=== PATIENT | female | born 1960 | race Asian ===

== ENCOUNTER 2017-11-26 07:37 | Day surgery (SDC) | payer OTHER ==
[~2017-11-26] VITALS: Ht 157.5 cm; Wt 59.4 kg
[~2017-11-26 07:37] MED LIST: BASAGLAR K100 UNIT/1; BLOOD PRESSURE PILL; CEPH500 PO; CLIMARA1 EACH; Diabeta2.5 MG PO; INSLIS75I SC; INSU7030P SUBQ; INSULANPEN SC; IRBE75; MECL25 PO; OXYACE5T PO; PROM25 PO; RXOXYACE PO; TAMS.4ER PO; Zofran Odt4 MG PO
== END 2017-11-26 09:39 | disposition home or self-care (01) ==
LOC: ORSCSDS 07:37
PROVIDERS: Surgery
PROC: 0DJD8ZZ Inspection of Lower Intestinal Tract, Via Natural or Artificial Opening Endoscopic (ICD-10-PCS; principal; 2017-11-26 08:45)
DX: Z12.11 Encounter for screening for malignant neoplasm of colon (principal); Z85.038 Personal history of other malignant neoplasm of large intestine; E11.9 Type 2 diabetes mellitus without complications; I10 Essential (primary) hypertension; Z79.4 Long term (current) use of insulin; Z79.899 Other long term (current) drug therapy
CPT/HCPCS: 82947; J2405; J7120

== ENCOUNTER 2018-03-16 07:31 | Emergency (ER) | payer OTHER | END 2018-03-16 07:51 | disposition left against medical advice (07) | LOC: ER 07:31 | DX: Z53.21 Procedure and treatment not carried out due to patient leaving prior to being seen by health care provider (principal) ==

== ENCOUNTER 2018-05-05 04:16 | Emergency (ER) | payer OTHER ==
[~2018-05-05] VITALS: Ht 160 cm; Wt 58.5 kg
[2018-05-05 05:35] LABS: BASOPHILS ABSOLUTE AUTO 0.02 K/mm3 (0.00-0.23); BASOPHILS PERCENT AUTO 0 % (0-2); EOSINOPHILS ABSOLUTE AUTO 0.01 K/mm3 (0.00-0.68); EOSINOPHILS PERCENT AUTO 0 % (0-6); Hematocrit 46.3 % (33.0-51.0); Hemoglobin 15.8 g/dL (11.5-16.0); IMMATURE GRAN ABSOLUTE AUTO 0.02 K/mm3 (0.00-0.10); IMMATURE GRAN PERCENT AUTO 0 % (0-1); LYMPHOCYTES ABSOLUTE AUTO 0.86 K/mm3 (0.84-5.20); LYMPHOCYTES PERCENT AUTO 8 % (21-46); MONOCYTES ABSOLUTE AUTO 0.34 K/mm3 (0.16-1.47); MONOCYTES PERCENT AUTO 3 % (4-13); Mean Corpuscular HGB 28.2 pg (26.0-34.0); Mean Corpuscular HGB Conc 34.1 g/dL (31.5-36.5); Mean Corpuscular Volume 83 fL (80-100); Mean Platelet Volume 10.3 fL (9.1-12.4); NEUTROPHILS ABSOLUTE AUTO 10.08 K/mm3 (1.96-9.15); NEUTROPHILS PERCENT AUTO 89 % (41-73); Platelet Count 215 K/mm3 (150-400); RDW Coefficient Variation 11.9 % (11.7-14.2); RDW Standard Deviation 36.3 fL (35.1-46.3); White Blood Cell Count 11.33 K/mm3 (4.00-11.30)
[2018-05-05 05:50] LABS: Alanine Aminotransfer (ALT/SGP 26 U/L (12-78); Alk Phos 75 U/L (50-136); Anion Gap 10 mmol/L (6-16); Aspartate Aminotrans (AST/SGOT 21 U/L (12-37); Bilirubin, Total 1.2 mg/dL (0.1-1.0); Blood Urea Nitrogen 25 mg/dL (8-24); Bun/Creatinine Ratio 33.3 (12.0-20.0); CO2, Blood 26 mmol/L (21-32); Calcium, Blood 9.5 mg/dL (8.5-10.1); Chloride, Blood 103 mmol/L (98-108); Creatinine, Blood 0.75 mg/dL (0.40-1.00); Globulin, Blood 4.2 g/dL (2.2-4.0); Glomerular Filtration Rate >60 (60-); Glucose, Blood 368 mg/dL (70-99); Potassium, Blood 5.3 mmol/L (3.5-5.5); Sodium, Blood 139 mmol/L (136-145); Total Protein, Blood 8.2 g/dL (6.4-8.2)
[2018-05-05 06:41] LABS: Troponin I <0.015 ng/mL (0.000-0.040)
== END 2018-05-05 08:20 | disposition home or self-care (01) ==
LOC: ER 04:16
PROVIDERS: Emergency Medicine
DX: R10.10 Upper abdominal pain, unspecified (principal); R11.2 Nausea with vomiting, unspecified; E11.9 Type 2 diabetes mellitus without complications; I10 Essential (primary) hypertension; Z88.2 Allergy status to sulfonamides; Z88.1 Allergy status to other antibiotic agents; Z91.09 Other allergy status, other than to drugs and biological substances; Z79.4 Long term (current) use of insulin
CPT/HCPCS: 36415; 80053; 82947; 83690; 84484; 85025; 93005; 93010; 96361; 96374; 96375; 99283; J1815; J2405; J3010; J7120

== ENCOUNTER 2019-03-26 07:24 | Emergency (ER) | payer OTHER ==
[~2019-03-26] VITALS: Ht 160 cm; Wt 54.4 kg
[~2019-03-26 07:24] MED LIST changes: +Zofran8 MG PO
[2019-03-26] MEDS ORDERED: LOSA50 (07:52)
[2019-03-26 08:17] LABS: BASOPHILS ABSOLUTE AUTO 0.02 K/mm3 (0.00-0.23); BASOPHILS PERCENT AUTO 0 % (0-2); EOSINOPHILS ABSOLUTE AUTO 0.05 K/mm3 (0.00-0.68); EOSINOPHILS PERCENT AUTO 1 % (0-6); Hematocrit 45.8 % (33.0-51.0); Hemoglobin 15.7 g/dL (11.5-16.0); IMMATURE GRAN ABSOLUTE AUTO 0.02 K/mm3 (0.00-0.10); IMMATURE GRAN PERCENT AUTO 0 % (0-1); LYMPHOCYTES PERCENT AUTO 17 % (21-46); MONOCYTES ABSOLUTE AUTO 0.36 K/mm3 (0.16-1.47); MONOCYTES PERCENT AUTO 6 % (4-13); Mean Corpuscular HGB 28.3 pg (26.0-34.0); Mean Corpuscular HGB Conc 34.3 g/dL (31.5-36.5); Mean Platelet Volume 12.9 fL (9.1-12.4); NEUTROPHILS ABSOLUTE AUTO 5.02 K/mm3 (1.96-9.15); NEUTROPHILS PERCENT AUTO 76 % (41-73); RDW Coefficient Variation 11.9 % (11.7-14.2); RDW Standard Deviation 35.8 fL (35.1-46.3); Red Blood Cell Count 5.54 M/mm3 (3.80-5.20); White Blood Cell Count 6.57 K/mm3 (4.00-11.30)
[2019-03-26 08:34] LABS: Alanine Aminotransfer (ALT/SGP 21 U/L (12-78); Albumin, Blood 3.8 g/dL (3.4-5.0); Alk Phos 83 U/L (50-136); Anion Gap 8 mmol/L (6-16); Aspartate Aminotrans (AST/SGOT 17 U/L (12-37); Bilirubin, Total 0.8 mg/dL (0.1-1.0); Blood Urea Nitrogen 15 mg/dL (8-24); Bun/Creatinine Ratio 28.1 (12.0-20.0); CO2, Blood 26 mmol/L (21-32); Chloride, Blood 103 mmol/L (98-108); Creatinine, Blood 0.53 mg/dL (0.40-1.00); Glomerular Filtration Rate >60 (60-); Glucose, Blood 371 mg/dL (70-99); Potassium, Blood 3.6 mmol/L (3.5-5.5); Sodium, Blood 137 mmol/L (136-145); Total Protein, Blood 7.8 g/dL (6.4-8.2)
[2019-03-26 08:49] LABS: Mean Corpuscular Volume 83 fL (80-100)
[2019-03-26 08:51] LABS: Platelet Count 111 K/mm3 (150-400)
[2019-03-26] MEDS ORDERED: MOTION RELIEF25 MG PO (08:53)
[2019-03-26] MEDS ORDERED: ONDA4ODT MM (08:53)
== END 2019-03-26 09:15 | disposition home or self-care (01) ==
LOC: ER 07:24
PROVIDERS: Physician Assistant
DX: R42 Dizziness and giddiness (principal); I10 Essential (primary) hypertension; E11.9 Type 2 diabetes mellitus without complications; Z87.442 Personal history of urinary calculi
CPT/HCPCS: 36415; 80053; 82947; 84484; 85025; 93005; 93010; 96374; 99283-25; J2405

== ENCOUNTER 2019-03-29 22:00 | Emergency (ER) | payer OTHER ==
[~2019-03-29] VITALS: Ht 160 cm; Wt 54.4 kg
[~2019-03-29 22:00] MED LIST changes: +LOSA50; +MOTION RELIEF25 MG PO; +ONDA4ODT MM
[2019-03-29 22:56] LABS: BASOPHILS ABSOLUTE AUTO 0.02 K/mm3 (0.00-0.23); BASOPHILS PERCENT AUTO 0 % (0-2); EOSINOPHILS PERCENT AUTO 2 % (0-6); Hematocrit 47.5 % (33.0-51.0); Hemoglobin 16.1 g/dL (11.5-16.0); IMMATURE GRAN ABSOLUTE AUTO 0.01 K/mm3 (0.00-0.10); IMMATURE GRAN PERCENT AUTO 0 % (0-1); LYMPHOCYTES ABSOLUTE AUTO 1.62 K/mm3 (0.84-5.20); LYMPHOCYTES PERCENT AUTO 24 % (21-46); MONOCYTES ABSOLUTE AUTO 0.47 K/mm3 (0.16-1.47); MONOCYTES PERCENT AUTO 7 % (4-13); Mean Corpuscular HGB 28.2 pg (26.0-34.0); Mean Corpuscular HGB Conc 33.9 g/dL (31.5-36.5); Mean Corpuscular Volume 83 fL (80-100); NEUTROPHILS ABSOLUTE AUTO 4.56 K/mm3 (1.96-9.15); NEUTROPHILS PERCENT AUTO 67 % (41-73); RDW Coefficient Variation 11.7 % (11.7-14.2); RDW Standard Deviation 35.4 fL (35.1-46.3); White Blood Cell Count 6.78 K/mm3 (4.00-11.30)
[2019-03-29 22:59] LABS: Mean Platelet Volume 13.4 fL (9.1-12.4); Platelet Count 62 K/mm3 (150-400)
[2019-03-29 23:13] LABS: Alanine Aminotransfer (ALT/SGP 24 U/L (12-78); Albumin, Blood 3.8 g/dL (3.4-5.0); Albumin/Globulin Ratio 0.9 (0.8-1.8); Alk Phos 81 U/L (50-136); Anion Gap 9 mmol/L (6-16); Aspartate Aminotrans (AST/SGOT 18 U/L (12-37); Bilirubin, Total 0.7 mg/dL (0.1-1.0); Blood Urea Nitrogen 17 mg/dL (8-24); Bun/Creatinine Ratio 27.7 (12.0-20.0); CO2, Blood 25 mmol/L (21-32); Calcium, Blood 9.1 mg/dL (8.5-10.1); Chloride, Blood 104 mmol/L (98-108); Creatinine, Blood 0.61 mg/dL (0.40-1.00); Globulin, Blood 4.4 g/dL (2.2-4.0); Glomerular Filtration Rate >60 (60-); Glucose, Blood 342 mg/dL (70-99); Potassium, Blood 3.9 mmol/L (3.5-5.5); Sodium, Blood 138 mmol/L (136-145); Total Protein, Blood 8.2 g/dL (6.4-8.2)
[2019-03-30] MEDS ORDERED: ONDA4ODT MM (02:24)
== END 2019-03-30 02:44 | disposition home or self-care (01) ==
LOC: ER 22:00
PROVIDERS: Emergency Medicine
DX: R10.13 Epigastric pain (principal); R11.2 Nausea with vomiting, unspecified; E11.9 Type 2 diabetes mellitus without complications; I10 Essential (primary) hypertension; Z88.2 Allergy status to sulfonamides; Z88.5 Allergy status to narcotic agent; Z88.8 Allergy status to other drugs, medicaments and biological substances; Z87.442 Personal history of urinary calculi; Z85.038 Personal history of other malignant neoplasm of large intestine; Z79.4 Long term (current) use of insulin; Z79.899 Other long term (current) drug therapy
CPT/HCPCS: 36415; 74176; 80053; 83690; 85025; 96374; 96375; 96376; 99284-25; J1200; J2405; J2765; J3010

== ENCOUNTER 2019-05-18 07:24 | Emergency (ER) | payer OTHER ==
[~2019-05-18] VITALS: Ht 162.6 cm; Wt 59.0 kg
[2019-05-18 08:32] LABS: BASOPHILS ABSOLUTE AUTO 0.01 K/mm3 (0.00-0.23); BASOPHILS PERCENT AUTO 0 % (0-2); EOSINOPHILS ABSOLUTE AUTO 0.02 K/mm3 (0.00-0.68); EOSINOPHILS PERCENT AUTO 0 % (0-6); Hematocrit 46.1 % (33.0-51.0); Hemoglobin 15.1 g/dL (11.5-16.0); IMMATURE GRAN ABSOLUTE AUTO 0.02 K/mm3 (0.00-0.10); IMMATURE GRAN PERCENT AUTO 0 % (0-1); LYMPHOCYTES ABSOLUTE AUTO 0.38 K/mm3 (0.84-5.20); LYMPHOCYTES PERCENT AUTO 6 % (21-46); MONOCYTES ABSOLUTE AUTO 0.27 K/mm3 (0.16-1.47); MONOCYTES PERCENT AUTO 4 % (4-13); Mean Corpuscular HGB 28.4 pg (26.0-34.0); Mean Corpuscular HGB Conc 32.8 g/dL (31.5-36.5); Mean Corpuscular Volume 87 fL (80-100); NEUTROPHILS ABSOLUTE AUTO 6.01 K/mm3 (1.96-9.15); NEUTROPHILS PERCENT AUTO 90 % (41-73); RDW Coefficient Variation 11.7 % (11.7-14.2); RDW Standard Deviation 37.3 fL (35.1-46.3); Red Blood Cell Count 5.31 M/mm3 (3.80-5.20); White Blood Cell Count 6.71 K/mm3 (4.00-11.30)
[2019-05-18 08:47] LABS: Alanine Aminotransfer (ALT/SGP 23 U/L (12-78); Albumin, Blood 3.9 g/dL (3.4-5.0); Alk Phos 74 U/L (50-136); Anion Gap 9 mmol/L (6-16); Aspartate Aminotrans (AST/SGOT 25 U/L (12-37); Blood Urea Nitrogen 17 mg/dL (8-24); Bun/Creatinine Ratio 24.1 (12.0-20.0); CO2, Blood 27 mmol/L (21-32); Calcium, Blood 8.8 mg/dL (8.5-10.1); Chloride, Blood 103 mmol/L (98-108); Globulin, Blood 3.9 g/dL (2.2-4.0); Glomerular Filtration Rate >60 (60-); Glucose, Blood 319 mg/dL (70-99); Potassium, Blood 3.9 mmol/L (3.5-5.5); Sodium, Blood 139 mmol/L (136-145); Total Protein, Blood 7.8 g/dL (6.4-8.2)
[2019-05-18 09:18] LABS: Platelet Count 113 K/mm3 (150-400)
[2019-05-18 09:42] LABS: Source, Urine Clean Catch
[2019-05-18 09:55] LABS: Bilirubin, Urine Neg (Neg); Blood, Urine Neg (Neg); Glucose Qualitative, Urine 4+ (Neg); Ketones, Urine 2+ (Neg); Leukocyte Esterase, Urine 1+ (Neg); Nitrite, Urine Neg (Neg); Protein, Urine 1+ (Neg); Urobilinogen, Urine NORM (Normal)
[2019-05-18 10:09] LABS: Appearance, Urine Clear (Clear); Color, Urine Yellow (P-Yellow)
[2019-05-18 10:10] LABS: Bacteria Rare /hpf; Red Blood Cells, Urine Not Seen /hpf (0-2); Squamous Epithelial Cells Not Seen /hpf (Few); Yeast/Fungi Urine Few /hpf
== END 2019-05-18 10:46 | disposition home or self-care (01) ==
LOC: ER 07:24
PROVIDERS: Physician Assistant
DX: R11.2 Nausea with vomiting, unspecified (principal); R10.13 Epigastric pain; Z88.2 Allergy status to sulfonamides; Z88.1 Allergy status to other antibiotic agents; Z88.8 Allergy status to other drugs, medicaments and biological substances; Z79.899 Other long term (current) drug therapy; Z79.4 Long term (current) use of insulin; E11.9 Type 2 diabetes mellitus without complications; I10 Essential (primary) hypertension
CPT/HCPCS: 36415; 80053; 81001; 82947; 83690; 85025; 87086; 93005; 93010; 96374; 96375; 99284-25; J1200; J2765; J7120

== ENCOUNTER 2019-05-21 10:59 | Emergency (ER) | payer OTHER ==
[~2019-05-21] VITALS: Ht 160 cm; Wt 59.0 kg
[2019-05-21 11:55] LABS: BASOPHILS ABSOLUTE AUTO 0.01 K/mm3 (0.00-0.23); BASOPHILS PERCENT AUTO 0 % (0-2); EOSINOPHILS ABSOLUTE AUTO 0.03 K/mm3 (0.00-0.68); EOSINOPHILS PERCENT AUTO 1 % (0-6); Hematocrit 46.7 % (33.0-51.0); Hemoglobin 15.6 g/dL (11.5-16.0); IMMATURE GRAN ABSOLUTE AUTO 0.01 K/mm3 (0.00-0.10); IMMATURE GRAN PERCENT AUTO 0 % (0-1); LYMPHOCYTES ABSOLUTE AUTO 1.37 K/mm3 (0.84-5.20); LYMPHOCYTES PERCENT AUTO 34 % (21-46); MONOCYTES ABSOLUTE AUTO 0.42 K/mm3 (0.16-1.47); MONOCYTES PERCENT AUTO 10 % (4-13); Mean Corpuscular HGB 28.9 pg (26.0-34.0); Mean Corpuscular HGB Conc 33.4 g/dL (31.5-36.5); Mean Corpuscular Volume 87 fL (80-100); NEUTROPHILS ABSOLUTE AUTO 2.19 K/mm3 (1.96-9.15); NEUTROPHILS PERCENT AUTO 55 % (41-73); RDW Coefficient Variation 11.7 % (11.7-14.2); RDW Standard Deviation 37.3 fL (35.1-46.3); Red Blood Cell Count 5.39 M/mm3 (3.80-5.20); White Blood Cell Count 4.03 K/mm3 (4.00-11.30)
[2019-05-21 12:04] LABS: Mean Platelet Volume 12.8 fL (9.1-12.4)
[2019-05-21 12:06] LABS: Platelet Count 135 K/mm3 (150-400)
[2019-05-21 12:14] LABS: Alanine Aminotransfer (ALT/SGP 35 U/L (12-78); Alk Phos 77 U/L (50-136); Anion Gap 6 mmol/L (6-16); Aspartate Aminotrans (AST/SGOT 41 U/L (12-37); Bilirubin, Total 0.6 mg/dL (0.1-1.0); Blood Urea Nitrogen 17 mg/dL (8-24); Bun/Creatinine Ratio 24.8 (12.0-20.0); CO2, Blood 25 mmol/L (21-32); Chloride, Blood 108 mmol/L (98-108); Creatinine, Blood 0.69 mg/dL (0.40-1.00); Globulin, Blood 3.9 g/dL (2.2-4.0); Glomerular Filtration Rate >60 (60-); Glucose, Blood 261 mg/dL (70-99); Potassium, Blood 3.8 mmol/L (3.5-5.5); Sodium, Blood 139 mmol/L (136-145); Total Protein, Blood 7.9 g/dL (6.4-8.2)
[2019-05-21 12:54] LABS: Source, Urine Clean Catch
[2019-05-21 13:05] LABS: Bilirubin, Urine Neg (Neg); Blood, Urine 1+ (Neg); Glucose Qualitative, Urine 4+ (Neg); Ketones, Urine Neg (Neg); Leukocyte Esterase, Urine 1+ (Neg); Nitrite, Urine Neg (Neg); Protein, Urine 2+ (Neg); Urobilinogen, Urine NORM (Normal)
[2019-05-21 13:18] LABS: Appearance, Urine Clear (Clear); Color, Urine Yellow (P-Yellow)
[2019-05-21 13:20] LABS: Bacteria Mod /hpf; Red Blood Cells, Urine Rare /hpf (0-2); Squamous Epithelial Cells Not Seen /hpf (Few); Yeast/Fungi Urine Mod /hpf
[2019-05-21] MEDS ORDERED: Zofran8 MG PO (15:14)
[2019-05-21] MEDS ORDERED: Pepcid40 MG PO (15:14)
== END 2019-05-21 16:01 | disposition home or self-care (01) ==
LOC: ER 10:59
PROVIDERS: Emergency Medicine
DX: K52.9 Noninfective gastroenteritis and colitis, unspecified (principal); E86.0 Dehydration; I10 Essential (primary) hypertension; E11.9 Type 2 diabetes mellitus without complications; Z85.038 Personal history of other malignant neoplasm of large intestine; Z79.4 Long term (current) use of insulin; Z79.899 Other long term (current) drug therapy
CPT/HCPCS: 36415; 80053; 81001; 85025; 87086; 87106; 96361; 96374; 96375; 99283-25; J2405; J7030

== ENCOUNTER 2020-04-17 18:11 | Inpatient (IN) | payer OTHER ==
[~2020-04-17] VITALS: Ht 162.6 cm; Wt 62.3 kg
[~2020-04-17 18:11] MED LIST changes: +Pepcid40 MG PO
[2020-04-17 19:11] LABS: BASOPHILS ABSOLUTE AUTO 0.05 K/mm3 (0.00-0.23); BASOPHILS PERCENT AUTO 0 % (0-2); EOSINOPHILS ABSOLUTE AUTO 0.05 K/mm3 (0.00-0.68); EOSINOPHILS PERCENT AUTO 0 % (0-6); Hemoglobin 17.2 g/dL (11.5-16.0); IMMATURE GRAN ABSOLUTE AUTO 0.09 K/mm3 (0.00-0.10); IMMATURE GRAN PERCENT AUTO 1 % (0-1); LYMPHOCYTES PERCENT AUTO 15 % (21-46); MONOCYTES ABSOLUTE AUTO 0.72 K/mm3 (0.16-1.47); MONOCYTES PERCENT AUTO 5 % (4-13); Mean Corpuscular HGB 28.1 pg (26.0-34.0); Mean Corpuscular HGB Conc 32.5 g/dL (31.5-36.5); Mean Corpuscular Volume 87 fL (80-100); Mean Platelet Volume 11.4 fL (9.1-12.4); NEUTROPHILS ABSOLUTE AUTO 10.86 K/mm3 (1.96-9.15); NEUTROPHILS PERCENT AUTO 78 % (41-73); Platelet Count 149 K/mm3 (150-400); RDW Coefficient Variation 11.6 % (11.7-14.2); RDW Standard Deviation 36.9 fL (35.1-46.3); Red Blood Cell Count 6.12 M/mm3 (3.80-5.20); White Blood Cell Count 13.87 K/mm3 (4.00-11.30)
[2020-04-17 19:31] LABS: Alanine Aminotransfer (ALT/SGP 25 U/L (12-78); Albumin, Blood 4.2 g/dL (3.4-5.0); Albumin/Globulin Ratio 0.9 (0.8-1.8); Alk Phos 70 U/L (50-136); Anion Gap 9 mmol/L (6-16); Aspartate Aminotrans (AST/SGOT 22 U/L (12-37); Bilirubin, Total 0.8 mg/dL (0.1-1.0); Blood Urea Nitrogen 14 mg/dL (8-24); CO2, Blood 27 mmol/L (21-32); Calcium, Blood 9.7 mg/dL (8.5-10.1); Chloride, Blood 101 mmol/L (98-108); Globulin, Blood 4.5 g/dL (2.2-4.0); Glomerular Filtration Rate >60 (60-); Glucose, Blood 363 mg/dL (70-99); Potassium, Blood 3.4 mmol/L (3.5-5.5); Sodium, Blood 137 mmol/L (136-145); Total Protein, Blood 8.7 g/dL (6.4-8.2); Troponin I <0.015 ng/mL (0.000-0.040)
[2020-04-17] MEDS ORDERED: BASAGLAR K100 UNIT/2 SC (20:54)
--- NOTE | 2020-04-17 23:25 | NUR ---
PT ARRIVED FROM ER PER STEPHEN AND TRANSFERRED PER STAFF TO BED. PT SEDATE. REQUIRING STERNAL RUB FOR PT TO OPEN EYES AND VERBALLY ANSWER QUESTION OF NURSE, THEN DRIFTING IMMEDIATELY INTO EYE CLOSED AGAIN.PT RECEIVED DILAUDID AND PHENERGAN IN ER, AND IT WAS REPORTED PT WAS FOUND TO BE HIGHLY SENSITIVE TO MEDS AND SLOW TO ROUSE.SEE PT VS. HTN NOTED PER ER AND CURRENTLY DIASTOLIC GREATER THAN 100. ALSO BLOOD SUGAR WAS GREATER THAN 300 IN ER AND CHEM BG STILL 314 HERE.PTS RESPIRATIONS ALSO NOTED SHALLOW.I CALLED DR AMAYA AND ADVISED OF ABOVE WITH ORDERS RECEIVED.
[2020-04-18 04:29] LABS: BASOPHILS ABSOLUTE AUTO 0.02 K/mm3 (0.00-0.23); BASOPHILS PERCENT AUTO 0 % (0-2); EOSINOPHILS PERCENT AUTO 0 % (0-6); Hematocrit 48.1 % (33.0-51.0); Hemoglobin 15.8 g/dL (11.5-16.0); IMMATURE GRAN ABSOLUTE AUTO 0.04 K/mm3 (0.00-0.10); IMMATURE GRAN PERCENT AUTO 0 % (0-1); LYMPHOCYTES ABSOLUTE AUTO 0.69 K/mm3 (0.84-5.20); LYMPHOCYTES PERCENT AUTO 7 % (21-46); MONOCYTES ABSOLUTE AUTO 0.45 K/mm3 (0.16-1.47); MONOCYTES PERCENT AUTO 4 % (4-13); Mean Corpuscular HGB 27.9 pg (26.0-34.0); Mean Corpuscular HGB Conc 32.8 g/dL (31.5-36.5); Mean Corpuscular Volume 85 fL (80-100); NEUTROPHILS PERCENT AUTO 88 % (41-73); RDW Coefficient Variation 11.8 % (11.7-14.2); RDW Standard Deviation 36.4 fL (35.1-46.3); Red Blood Cell Count 5.66 M/mm3 (3.80-5.20)
[2020-04-18 04:42] LABS: Anion Gap 11 mmol/L (6-16); Blood Urea Nitrogen 13 mg/dL (8-24); Bun/Creatinine Ratio 22.3 (12.0-20.0); CO2, Blood 22 mmol/L (21-32); Calcium, Blood 8.1 mg/dL (8.5-10.1); Chloride, Blood 109 mmol/L (98-108); Creatinine, Blood 0.58 mg/dL (0.40-1.00); Glomerular Filtration Rate >60 (60-); Glucose, Blood 298 mg/dL (70-99); Potassium, Blood 3.9 mmol/L (3.5-5.5); Sodium, Blood 142 mmol/L (136-145)
[2020-04-18 05:52] LABS: Mean Platelet Volume 10.6 fL (9.1-12.4)
[2020-04-18 08:07] LABS: Platelet Count 153 K/mm3 (150-400)
--- NOTE | 2020-04-18 10:57 | NUR ---
PT LEFT GONE TO IMAGING FOR CT.
--- NOTE | 2020-04-18 17:43 | NUR ---
SHIFT SUMMARY A/O X4, RESTFUL, VSS, NPO, CBG Q6, INSULIN GIVEN PER EMAR LOW SS, AMBULATES W/ STANDBY ASSIST TO BATHROOM, VOIDS WELL, IV L FOREARM INFUSING 1/2 NS @ 75 ML/HR, LAURA MANAGED 0.25 HYDROMORPHONE PRN. WILL REPORT TO ONCCANDIDA BHANDARI RN.
[2020-04-19 04:03] LABS: BASOPHILS ABSOLUTE AUTO 0.02 K/mm3 (0.00-0.23); BASOPHILS PERCENT AUTO 0 % (0-2); EOSINOPHILS ABSOLUTE AUTO 0.03 K/mm3 (0.00-0.68); EOSINOPHILS PERCENT AUTO 0 % (0-6); Hematocrit 44.7 % (33.0-51.0); Hemoglobin 14.7 g/dL (11.5-16.0); IMMATURE GRAN ABSOLUTE AUTO 0.02 K/mm3 (0.00-0.10); IMMATURE GRAN PERCENT AUTO 0 % (0-1); LYMPHOCYTES ABSOLUTE AUTO 1.47 K/mm3 (0.84-5.20); LYMPHOCYTES PERCENT AUTO 22 % (21-46); MONOCYTES ABSOLUTE AUTO 0.77 K/mm3 (0.16-1.47); MONOCYTES PERCENT AUTO 11 % (4-13); Mean Corpuscular HGB 28.4 pg (26.0-34.0); Mean Corpuscular HGB Conc 32.9 g/dL (31.5-36.5); Mean Corpuscular Volume 87 fL (80-100); Mean Platelet Volume 10.7 fL (9.1-12.4); NEUTROPHILS ABSOLUTE AUTO 4.42 K/mm3 (1.96-9.15); NEUTROPHILS PERCENT AUTO 66 % (41-73); Platelet Count 151 K/mm3 (150-400); RDW Coefficient Variation 11.9 % (11.7-14.2); RDW Standard Deviation 38.3 fL (35.1-46.3); Red Blood Cell Count 5.17 M/mm3 (3.80-5.20); White Blood Cell Count 6.73 K/mm3 (4.00-11.30)
--- NOTE | 2020-04-19 04:22 | NUR ---
SHIFT SUMMARY ASSUMED CARE AT 2200. PT HAS BEEN SLEEPING / DROWSY SINCE ASSUMING CARE AT 2200 BUT AWAKENS EASILY AND RESPONDS APPROPRIATELY TO QUESTIONS; SEEMS A/O X4. BIOX IN PLACE; O2 SAT ABOVE 92% ON RA. VSS. PAIN MANAGED WITH 0.25MG DILAUDED PER ORDER; SEE EMAR. PT NEEDS SBA TO BATHROOM D/T NARCOTICS. IV FLUIDS HAVE BEEN RUNNING THROUGHOUT THE NIGHT. PT HAS BEEN NPO SINCE MIDNIGHT FOR POSSIBLE SURGERY. NO ACUTE CHANGES. ASSISTED WITH ADL'S PRN.
--- NOTE | 2020-04-19 18:35 | NUR ---
SHIFT SUMMARY DINO STATES SHE IS FEELING BETTER TODAY. DECLINED PAIN OR NAUSEA MEDICINE FOR ME THIS SHIFT. HAD SB SERIES, TOLERATED WELL. HAVING FREQUENT LIQUID BM SINCE SHE DRANK THE CONTRAST. (SHE HAD AN IODINE ALLERGY, SO SHE WAS PREMEDICATED PRIOR TO THE SB SERIES). HAD NEW POWERGLIDE PLACED, PIV WENT BAD. ADVANCED TO CLEARS DIET. CBGS REQUIRED INSULIN ONCE THIS SHIFT. INDEP TO BR. TOOK MEDS PRESCRIBED. WCTM
--- NOTE | 2020-04-20 04:16 | NUR ---
SHIFT SUMMARY PT IS A/O X4 AND IND. IN ROOM. PT HAS DENIED N/V AND PAIN THIS SHIFT. PT REPORTS TOLERATING CLEAR LIQUIDS WELL AND HAVING LOOSE BM'S. BIOX AT BEDSIDE; O2 HAS REMAINED > 92% ON RA. VSS. NO ACUTE CHANGES OVERNIGHT.
[2020-04-20 05:40] LABS: Anion Gap 6 mmol/L (6-16); Blood Urea Nitrogen 21 mg/dL (8-24); Bun/Creatinine Ratio 29.7 (12.0-20.0); CO2, Blood 25 mmol/L (21-32); Calcium, Blood 8.2 mg/dL (8.5-10.1); Chloride, Blood 112 mmol/L (98-108); Creatinine, Blood 0.71 mg/dL (0.40-1.00); Glomerular Filtration Rate >60 (60-); Glucose, Blood 149 mg/dL (70-99); Potassium, Blood 3.7 mmol/L (3.5-5.5); Sodium, Blood 143 mmol/L (136-145)
--- NOTE | 2020-04-20 15:11 | NUR ---
PT STATES SHE IS GOING OUTSIDE TO SMOKE. AWAKE AND ALERT, STEADY GAIT
--- NOTE | 2020-04-20 17:50 | NUR ---
CARLOS FULL LIQUID DINNER WITHOUT NAUSEA. PT HAVING LIQUID STOOLS THIS SHIFT BUT STATES THEY ARE DECREASING IN VOLUME. PT UP AD LENA IN ROOM, AWAKE AND ALERT. PT REPORTS SOME UPPER ABD CRAMPING BUT HAS DECLINED NEED FOR PAIN MEDS
--- NOTE | 2020-04-21 04:44 | NUR ---
SHIFT SUMMARY PT AA0X4, VSS. PT TOLERATING LIQUID DIET, REPORTS SMALL LOOSE STOOL STILL. PT REPORTS PASSING GAS. DENIES PAIN DURING SHIFT. DENIES NAUSEA T/O SHIFT. IND IN ROOM VOIDING.
[2020-04-21] MEDS ORDERED: BASAGLAR K100 UNIT/1 SC (12:52)
[2020-04-21] MEDS ORDERED: HYDCHL25 PO (12:53)
[2020-04-21] MEDS ORDERED: Humalog100 UNIT/3 SC (12:56)
[2020-04-21] MEDS ORDERED: ONDA4ODT MM (12:57)
--- NOTE | 2020-04-21 13:34 | NUR ---
1320 PT TO DISCHARGE TO HOME. POWER GLIDE REMOVED , NO SS OF INFECTION NOTED. PT DRESSED.NEW MEDS DISCUSSED AND CALLEDINTO PHARMACY OF CHOICE. PT EDUCATED ON NEW INSULIN DOSE.MEDIUM SS PROVIDED . PT WC OUT TO CAR TO BE TAKEN HOME BY BROTHER.
== END 2020-04-21 13:30 | disposition home or self-care (01) | DRG 872 ==
LOC: ER 18:11 → SURS 18:12 → ER 22:50 → SURS 22:50
PROVIDERS: Internal Medicine; Nurse Practitioner Acute Care; Physician Assistant; Surgery; ADMIT Internal Medicine
DX: A41.9 Sepsis, unspecified organism (principal); K81.0 Acute cholecystitis; K56.609 Unspecified intestinal obstruction, unspecified as to partial versus complete obstruction; E11.9 Type 2 diabetes mellitus without complications; I10 Essential (primary) hypertension; Z85.038 Personal history of other malignant neoplasm of large intestine; Z90.49 Acquired absence of other specified parts of digestive tract; E87.6 Hypokalemia; Z79.4 Long term (current) use of insulin; Z92.21 Personal history of antineoplastic chemotherapy; Z88.8 Allergy status to other drugs, medicaments and biological substances
CPT/HCPCS: 36415; 74176; 74250; 76705; 80048; 80053; 82947; 83605; 83690; 83735; 84484; 85025; 87040; 93005; 93010; 94762; 96365-59; 96367-59; 96375-59; 99285-25; A9270-GY; C1751; J0360; J0696; J1170; J1200; J2310; J2405; J2550; J2930; J3480; J7030; U0002

== ENCOUNTER 2020-10-14 04:11 | Emergency (ER) | payer OTHER ==
[~2020-10-14] VITALS: Ht 160 cm; Wt 61.2 kg
[~2020-10-14 04:11] MED LIST changes: +BASAGLAR K100 UNIT/1 SC; +BASAGLAR K100 UNIT/2 SC; +HYDCHL25 PO; +Humalog100 UNIT/3 SC
[2020-10-14 05:00] LABS: BASOPHILS ABSOLUTE AUTO 0.02 K/mm3 (0.00-0.23); BASOPHILS PERCENT AUTO 0 % (0-2); EOSINOPHILS ABSOLUTE AUTO 0.08 K/mm3 (0.00-0.68); EOSINOPHILS PERCENT AUTO 1 % (0-6); Hematocrit 48.8 % (33.0-51.0); Hemoglobin 15.8 g/dL (11.5-16.0); IMMATURE GRAN ABSOLUTE AUTO 0.03 K/mm3 (0.00-0.10); IMMATURE GRAN PERCENT AUTO 0 % (0-1); LYMPHOCYTES ABSOLUTE AUTO 1.24 K/mm3 (0.84-5.20); LYMPHOCYTES PERCENT AUTO 12 % (21-46); MONOCYTES PERCENT AUTO 5 % (4-13); Mean Corpuscular HGB 27.1 pg (26.0-34.0); Mean Corpuscular HGB Conc 32.4 g/dL (31.5-36.5); Mean Corpuscular Volume 84 fL (80-100); NEUTROPHILS ABSOLUTE AUTO 8.68 K/mm3 (1.96-9.15); NEUTROPHILS PERCENT AUTO 82 % (41-73); RDW Coefficient Variation 11.7 % (11.7-14.2); RDW Standard Deviation 34.9 fL (35.1-46.3); Red Blood Cell Count 5.84 M/mm3 (3.80-5.20); White Blood Cell Count 10.55 K/mm3 (4.00-11.30)
[2020-10-14 05:15] LABS: Mean Platelet Volume 10.7 fL (9.1-12.4)
[2020-10-14 05:17] LABS: Platelet Count 144 K/mm3 (150-400)
[2020-10-14 05:20] LABS: Alanine Aminotransfer (ALT/SGP 21 U/L (12-78); Albumin, Blood 3.8 g/dL (3.4-5.0); Albumin/Globulin Ratio 0.9 (0.8-1.8); Alk Phos 59 U/L (50-136); Anion Gap 8 mmol/L (6-16); Aspartate Aminotrans (AST/SGOT 18 U/L (12-37); Bilirubin, Total 0.9 mg/dL (0.1-1.0); Blood Urea Nitrogen 19 mg/dL (8-24); Bun/Creatinine Ratio 26.8 (12.0-20.0); CO2, Blood 26 mmol/L (21-32); Calcium, Blood 9.3 mg/dL (8.5-10.1); Chloride, Blood 106 mmol/L (98-108); Creatinine, Blood 0.71 mg/dL (0.40-1.00); Globulin, Blood 4.1 g/dL (2.2-4.0); Glomerular Filtration Rate >60 (60-); Glucose, Blood 292 mg/dL (70-99); Sodium, Blood 140 mmol/L (136-145); Total Protein, Blood 7.9 g/dL (6.4-8.2)
[2020-10-14] MEDS ORDERED: Norco 7.5-3251 EACH PO (07:32)
[2020-10-14] MEDS ORDERED: ONDA4ODT MM (07:32)
== END 2020-10-14 08:00 | disposition home or self-care (01) ==
LOC: ER 04:11
PROVIDERS: Emergency Medicine
DX: K80.80 Other cholelithiasis without obstruction (principal); E11.9 Type 2 diabetes mellitus without complications; I10 Essential (primary) hypertension; Z88.2 Allergy status to sulfonamides; Z88.1 Allergy status to other antibiotic agents; Z91.041 Radiographic dye allergy status; Z79.4 Long term (current) use of insulin; Z79.899 Other long term (current) drug therapy; Z87.442 Personal history of urinary calculi
CPT/HCPCS: 36415; 74176; 76705; 80053; 83690; 85025; 96374; 96375; 99284-25; J1170; J2405

== ENCOUNTER 2021-01-08 12:41 | Inpatient (IN) | payer BC ==
[~2021-01-08] VITALS: Ht 162.6 cm; Wt 63.0 kg
[~2021-01-08 12:41] MED LIST changes: -BASAGLAR K100 UNIT/1 SC; -Humalog100 UNIT/3 SC; -LOSA50; +Norco 7.5-3251 EACH PO
[2021-01-08 13:15] LABS: BASOPHILS ABSOLUTE AUTO 0.01 K/mm3 (0.00-0.23); BASOPHILS PERCENT AUTO 0 % (0-2); EOSINOPHILS ABSOLUTE AUTO 0.05 K/mm3 (0.00-0.68); EOSINOPHILS PERCENT AUTO 1 % (0-6); Hematocrit 50.5 % (33.0-51.0); Hemoglobin 17.3 g/dL (11.5-16.0); IMMATURE GRAN ABSOLUTE AUTO 0.02 K/mm3 (0.00-0.10); IMMATURE GRAN PERCENT AUTO 0 % (0-1); LYMPHOCYTES ABSOLUTE AUTO 2.33 K/mm3 (0.84-5.20); LYMPHOCYTES PERCENT AUTO 24 % (21-46); MONOCYTES ABSOLUTE AUTO 0.59 K/mm3 (0.16-1.47); MONOCYTES PERCENT AUTO 6 % (4-13); Mean Corpuscular HGB 28.1 pg (26.0-34.0); Mean Corpuscular HGB Conc 34.3 g/dL (31.5-36.5); Mean Corpuscular Volume 82 fL (80-100); Mean Platelet Volume 12.7 fL (9.1-12.4); NEUTROPHILS ABSOLUTE AUTO 6.62 K/mm3 (1.96-9.15); NEUTROPHILS PERCENT AUTO 69 % (41-73); Platelet Count 101 K/mm3 (150-400); RDW Coefficient Variation 11.9 % (11.7-14.2); RDW Standard Deviation 35.5 fL (35.1-46.3); Red Blood Cell Count 6.16 M/mm3 (3.80-5.20); White Blood Cell Count 9.62 K/mm3 (4.00-11.30)
[2021-01-08 13:35] LABS: Alanine Aminotransfer (ALT/SGP 24 U/L (12-78); Albumin, Blood 4.1 g/dL (3.4-5.0); Albumin/Globulin Ratio 0.9 (0.8-1.8); Alk Phos 71 U/L (50-136); Anion Gap 7 mmol/L (6-16); Aspartate Aminotrans (AST/SGOT 26 U/L (12-37); Bilirubin, Total 0.8 mg/dL (0.1-1.0); Blood Urea Nitrogen 19 mg/dL (8-24); CO2, Blood 22 mmol/L (21-32); Calcium, Blood 9.8 mg/dL (8.5-10.1); Chloride, Blood 108 mmol/L (98-108); Creatinine, Blood 0.66 mg/dL (0.40-1.00); Globulin, Blood 4.6 g/dL (2.2-4.0); Glomerular Filtration Rate >60 (60-); Glucose, Blood 282 mg/dL (70-99); Potassium, Blood 3.8 mmol/L (3.5-5.5); Sodium, Blood 137 mmol/L (136-145); Total Protein, Blood 8.7 g/dL (6.4-8.2)
[2021-01-08] MEDS ORDERED: BASAGLAR K100 UNIT/1 SC (15:20)
[2021-01-08] MEDS ORDERED: LOSA50 PO (15:21)
[2021-01-08] MEDS ORDERED: HUMALOG KW100 UNIT/1 SC (15:21)
--- NOTE | 2021-01-08 17:04 | NUR ---
ADMISSION: REPORT RECEIVED FROM ED RN. PT TO UNIT AT ABOUT 1615. UPON ASSESSMENT PT VSS, A/O, NO SIGNS OF DISTRESS. PT DENIES PAIN/NAUSEA. INDEP IN ROOM. CALL LIGHT IN REACH, WILL CTM
--- NOTE | 2021-01-08 18:12 | NUR ---
SUMMARY: NO ACUTE CHANGE SINCE ADMISSION. PT RESTING AT THIS TIME. HAS DENIED ANY PAIN. DID REPORT NAUSEA WITH SMALL UNMEASURED EMESIS. PT DENIED NEED FOR MEDICATION. VSS, WILL REPORT TO NOC RN.
[2021-01-09 04:46] LABS: BASOPHILS ABSOLUTE AUTO 0.01 K/mm3 (0.00-0.23); BASOPHILS PERCENT AUTO 0 % (0-2); EOSINOPHILS ABSOLUTE AUTO 0.11 K/mm3 (0.00-0.68); EOSINOPHILS PERCENT AUTO 2 % (0-6); Hematocrit 40.1 % (33.0-51.0); Hemoglobin 13.6 g/dL (11.5-16.0); IMMATURE GRAN ABSOLUTE AUTO 0.01 K/mm3 (0.00-0.10); IMMATURE GRAN PERCENT AUTO 0 % (0-1); LYMPHOCYTES ABSOLUTE AUTO 2.13 K/mm3 (0.84-5.20); LYMPHOCYTES PERCENT AUTO 33 % (21-46); MONOCYTES ABSOLUTE AUTO 0.58 K/mm3 (0.16-1.47); MONOCYTES PERCENT AUTO 9 % (4-13); Mean Corpuscular HGB Conc 33.9 g/dL (31.5-36.5); Mean Corpuscular Volume 83 fL (80-100); Mean Platelet Volume 12.3 fL (9.1-12.4); NEUTROPHILS ABSOLUTE AUTO 3.68 K/mm3 (1.96-9.15); NEUTROPHILS PERCENT AUTO 56 % (41-73); Platelet Count 110 K/mm3 (150-400); RDW Coefficient Variation 11.9 % (11.7-14.2); RDW Standard Deviation 36.1 fL (35.1-46.3); Red Blood Cell Count 4.86 M/mm3 (3.80-5.20); White Blood Cell Count 6.52 K/mm3 (4.00-11.30)
[2021-01-09 04:52] LABS: Magnesium, Blood 1.9 mg/dL (1.6-2.4)
[2021-01-09 05:01] LABS: Alanine Aminotransfer (ALT/SGP 17 U/L (12-78); Albumin, Blood 2.8 g/dL (3.4-5.0); Albumin/Globulin Ratio 0.9 (0.8-1.8); Alk Phos 47 U/L (50-136); Anion Gap 6 mmol/L (6-16); Aspartate Aminotrans (AST/SGOT 10 U/L (12-37); Blood Urea Nitrogen 16 mg/dL (8-24); CO2, Blood 30 mmol/L (21-32); Calcium, Blood 8.4 mg/dL (8.5-10.1); Chloride, Blood 111 mmol/L (98-108); Creatinine, Blood 0.73 mg/dL (0.40-1.00); Globulin, Blood 3.1 g/dL (2.2-4.0); Glomerular Filtration Rate >60 (60-); Glucose, Blood 100 mg/dL (70-99); Potassium, Blood 3.5 mmol/L (3.5-5.5); Sodium, Blood 147 mmol/L (136-145); Total Protein, Blood 5.9 g/dL (6.4-8.2)
--- NOTE | 2021-01-09 06:44 | NUR ---
PT VSS T/O NIGHT. PT SLEPT FOR MAJORITY OF SHIFT, DENIED PAIN/N/V. PT REP NO FLATUS YET. PT VOIDING URINE W/O DIFFICULTY. PT NPO PER ORDERS, IVF CONT. NO INSULIN COVERAGE NEEDED.
--- NOTE | 2021-01-09 15:11 | NUR ---
PASSING GAS & TOLERATING CLEAR LQ DIET WELL.
--- NOTE | 2021-01-09 18:19 | NUR ---
SHIFT SUMMARY PT HAS DONE WELL TODAY. UP IN ROOM SEVERAL TIMES. STARTED PASSING GAS. TOLERATING CLEAR LQ'S WELL W/ NO INCREASE IN ABD PAIN. REPORTS OCCASIONAL CRAMPING BUT HAS IMPROVED SINCE STARTED PASSING GAS.
[2021-01-10 04:22] LABS: Hematocrit 39.8 % (33.0-51.0); Hemoglobin 13.6 g/dL (11.5-16.0); Mean Corpuscular HGB 28.2 pg (26.0-34.0); Mean Corpuscular HGB Conc 34.2 g/dL (31.5-36.5); Mean Corpuscular Volume 83 fL (80-100); RDW Coefficient Variation 11.9 % (11.7-14.2); Red Blood Cell Count 4.82 M/mm3 (3.80-5.20); White Blood Cell Count 5.64 K/mm3 (4.00-11.30)
[2021-01-10 04:23] LABS: Mean Platelet Volume 12.6 fL (9.1-12.4); Platelet Count 106 K/mm3 (150-400)
--- NOTE | 2021-01-10 04:23 | NUR ---
SHIFT SUMMARY PT IS A/O X4, IND IN ROOM. SHE HAS DENIED PAIN AND NAUSEA OVERNIGHT. REPORTS PASSING FLATUS OVERNIGHT AND IS TOLERATING CLEAR LIQUID DIET. PT HAS BEEN RESTING IN BED MOST OF THE SHIFT. IV FLUIDS INFUSING OVERNIGHT PER ORDERS. NO ACUTE CHANGES THIS SHIFT. PT RESTING AT THIS TIME WITH CALL LIGHT IN REACH.
[2021-01-10 04:36] LABS: Anion Gap 7 mmol/L (6-16); Blood Urea Nitrogen 8 mg/dL (8-24); Bun/Creatinine Ratio 11.4 (12.0-20.0); CO2, Blood 27 mmol/L (21-32); Calcium, Blood 8.3 mg/dL (8.5-10.1); Chloride, Blood 111 mmol/L (98-108); Glomerular Filtration Rate >60 (60-); Glucose, Blood 112 mg/dL (70-99); Magnesium, Blood 1.8 mg/dL (1.6-2.4); Phosphorus, Blood 3.5 mg/dL (2.5-4.9); Potassium, Blood 3.5 mmol/L (3.5-5.5); Sodium, Blood 145 mmol/L (136-145)
--- NOTE | 2021-01-10 18:43 | NUR ---
SHIFT SUMMARY PT HAS DONE WELL TODAY. PLEASANT & UPBEAT. SLOWED IN PASSING GAS THIS AFTERNOON AFTER DIET ADVANCED. DOSE OF MIRALAX GIVEN. PT TOLERATING DIET W/O ANY INCREASE OF PAIN OR N/V POST MEALS. UP AMBULATING EASILY.
--- NOTE | 2021-01-11 01:43 | NUR ---
PT APPEARS TO BE SLEEPING IN BED, NO DISTRESS NOTED. REPORT GIVEN TO ALANA Morris RN.
[2021-01-11 05:19] LABS: Hematocrit 39.9 % (33.0-51.0); Hemoglobin 13.5 g/dL (11.5-16.0); Mean Corpuscular HGB 28.1 pg (26.0-34.0); Mean Corpuscular HGB Conc 33.8 g/dL (31.5-36.5); Mean Corpuscular Volume 83 fL (80-100); RDW Coefficient Variation 11.6 % (11.7-14.2); RDW Standard Deviation 35.1 fL (35.1-46.3); White Blood Cell Count 6.26 K/mm3 (4.00-11.30)
[2021-01-11 05:55] LABS: Mean Platelet Volume 10.9 fL (9.1-12.4); Platelet Count 111 K/mm3 (150-400)
[2021-01-11 06:00] LABS: Alanine Aminotransfer (ALT/SGP 19 U/L (12-78); Albumin/Globulin Ratio 0.9 (0.8-1.8); Alk Phos 48 U/L (50-136); Anion Gap 4 mmol/L (6-16); Aspartate Aminotrans (AST/SGOT 13 U/L (12-37); Blood Urea Nitrogen 13 mg/dL (8-24); Bun/Creatinine Ratio 16.8 (12.0-20.0); CO2, Blood 29 mmol/L (21-32); Calcium, Blood 8.7 mg/dL (8.5-10.1); Chloride, Blood 107 mmol/L (98-108); Creatinine, Blood 0.78 mg/dL (0.40-1.00); Globulin, Blood 3.4 g/dL (2.2-4.0); Glomerular Filtration Rate >60 (60-); Glucose, Blood 161 mg/dL (70-99); Phosphorus, Blood 4.4 mg/dL (2.5-4.9); Potassium, Blood 3.5 mmol/L (3.5-5.5); Sodium, Blood 140 mmol/L (136-145); Total Protein, Blood 6.4 g/dL (6.4-8.2)
--- NOTE | 2021-01-11 07:01 | NUR ---
SHIFT SUMMARY LYING IN SEMI FOWLERS WITH EYES CLOSED. HAS RESTED WELL SINCE ASSUMPTION OF CARE FROM Bob ADAMS RN USING SBAR. AAO X4, ELKINS, ABLE TO FOLLOW DIRECTIONS. RESPIRATIONS EVEN AND UNLABORED ON ROOM AIR. LUNG SOUNDS CLEAR BILATERALLY. ABDOMEN SOFT AND NONDISTENDED. HYPOACTIVE BOWEL SOUNDS NOTED IN ALL QUADS. SCD'S NOTED TO BLE. DENIES PAIN, DISCOMFORT, OR FURTHER NEEDS AT THIS TIME. SAFETY MEASURES IN PLACE. WILL CONTINUE TO MONITOR AND GIVE HAND OFF TO OMCOMING SHIFT USING SBAR DURING BEDSIDE REPORT.
[2021-01-11] MEDS ORDERED: ONDA4ODT MM (10:16)
[2021-01-11] MEDS ORDERED: MIRALAX17 GM PO (10:17)
--- NOTE | 2021-01-11 10:51 | NUR ---
DISCHARGE PT AMBULATES OUT. DECLINES W/C. PASSING GAS, BM THIS AM, AND TOLERATING DIET WELL. SIGNED OFF BY DR BEACH & HOSPITALIST.
== END 2021-01-11 11:29 | disposition home or self-care (01) | DRG 390 ==
LOC: ER 12:41 → SURS 14:39
PROVIDERS: Emergency Medicine; Family Medicine; Nurse Practitioner Acute Care; ADMIT Hospitalist
DX: K56.609 Unspecified intestinal obstruction, unspecified as to partial versus complete obstruction (principal); I10 Essential (primary) hypertension; E11.9 Type 2 diabetes mellitus without complications; Z79.4 Long term (current) use of insulin; Z85.038 Personal history of other malignant neoplasm of large intestine
CPT/HCPCS: 36415; 74176; 80048; 80053; 82947; 83690; 83735; 84100; 85025; 85027; 96361; 96374; 96375; 99285-25; A9270; J1170; J2405; J7030; J7120

== ENCOUNTER 2021-04-01 09:47 | Emergency (ER) | payer BC ==
[~2021-04-01] VITALS: Ht 160 cm; Wt 61.7 kg
[~2021-04-01 09:47] MED LIST changes: +BASAGLAR K100 UNIT/1 SC; +HUMALOG KW100 UNIT/1 SC; +LOSA50 PO; +MIRALAX17 GM PO
[2021-04-01 11:08] LABS: BASOPHILS ABSOLUTE AUTO 0.02 K/mm3 (0.00-0.23); BASOPHILS PERCENT AUTO 0 % (0-2); EOSINOPHILS ABSOLUTE AUTO 0.01 K/mm3 (0.00-0.68); EOSINOPHILS PERCENT AUTO 0 % (0-6); Hematocrit 45.4 % (33.0-51.0); Hemoglobin 15.4 g/dL (11.5-16.0); IMMATURE GRAN ABSOLUTE AUTO 0.04 K/mm3 (0.00-0.10); IMMATURE GRAN PERCENT AUTO 1 % (0-1); LYMPHOCYTES ABSOLUTE AUTO 0.73 K/mm3 (0.84-5.20); LYMPHOCYTES PERCENT AUTO 10 % (21-46); MONOCYTES ABSOLUTE AUTO 0.53 K/mm3 (0.16-1.47); MONOCYTES PERCENT AUTO 7 % (4-13); Mean Corpuscular HGB Conc 33.9 g/dL (31.5-36.5); Mean Corpuscular Volume 83 fL (80-100); NEUTROPHILS ABSOLUTE AUTO 6.04 K/mm3 (1.96-9.15); NEUTROPHILS PERCENT AUTO 82 % (41-73); RDW Coefficient Variation 11.8 % (11.7-14.2); RDW Standard Deviation 35.5 fL (35.1-46.3); White Blood Cell Count 7.37 K/mm3 (4.00-11.30)
[2021-04-01 11:24] LABS: Alanine Aminotransfer (ALT/SGP 21 U/L (12-78); Albumin, Blood 3.7 g/dL (3.4-5.0); Albumin/Globulin Ratio 0.9 (0.8-1.8); Alk Phos 65 U/L (50-136); Anion Gap 5 mmol/L (6-16); Aspartate Aminotrans (AST/SGOT 17 U/L (12-37); Bilirubin, Total 0.8 mg/dL (0.1-1.0); Blood Urea Nitrogen 19 mg/dL (8-24); Bun/Creatinine Ratio 27.2 (12.0-20.0); CO2, Blood 26 mmol/L (21-32); Calcium, Blood 8.6 mg/dL (8.5-10.1); Chloride, Blood 104 mmol/L (98-108); Globulin, Blood 4.1 g/dL (2.2-4.0); Glomerular Filtration Rate >60 (60-); Glucose, Blood 285 mg/dL (70-99); Platelet Count 109 K/mm3 (150-400); Potassium, Blood 4.1 mmol/L (3.5-5.5); Sodium, Blood 135 mmol/L (136-145); Total Protein, Blood 7.8 g/dL (6.4-8.2)
[2021-04-01] MEDS ORDERED: ONDA4ODT MM (11:43)
== END 2021-04-01 12:10 | disposition home or self-care (01) ==
LOC: ER 09:47
PROVIDERS: Emergency Medicine
DX: R11.2 Nausea with vomiting, unspecified (principal); R52 Pain, unspecified; I10 Essential (primary) hypertension; E11.9 Type 2 diabetes mellitus without complications; Z88.2 Allergy status to sulfonamides; Z88.8 Allergy status to other drugs, medicaments and biological substances; Z88.1 Allergy status to other antibiotic agents; Z91.041 Radiographic dye allergy status; T50.B95A Adverse effect of other viral vaccines, initial encounter
CPT/HCPCS: 36415; 80053; 83690; 85025; 96374; 96375; 99283-25; J1885; J2405; J7030

== ENCOUNTER 2021-06-28 00:21 | Emergency (ER) | payer BC ==
[~2021-06-28] VITALS: Ht 160 cm; Wt 61.7 kg
[2021-06-28 01:28] LABS: BASOPHILS ABSOLUTE AUTO 0.01 K/mm3 (0.00-0.23); BASOPHILS PERCENT AUTO 0 % (0-2); EOSINOPHILS ABSOLUTE AUTO 0.11 K/mm3 (0.00-0.68); EOSINOPHILS PERCENT AUTO 2 % (0-6); Hematocrit 44.5 % (33.0-51.0); Hemoglobin 15.2 g/dL (11.5-16.0); IMMATURE GRAN ABSOLUTE AUTO 0.02 K/mm3 (0.00-0.10); IMMATURE GRAN PERCENT AUTO 0 % (0-1); LYMPHOCYTES ABSOLUTE AUTO 1.59 K/mm3 (0.84-5.20); LYMPHOCYTES PERCENT AUTO 27 % (21-46); MONOCYTES ABSOLUTE AUTO 0.34 K/mm3 (0.16-1.47); MONOCYTES PERCENT AUTO 6 % (4-13); Mean Corpuscular HGB 27.9 pg (26.0-34.0); Mean Corpuscular HGB Conc 34.2 g/dL (31.5-36.5); Mean Corpuscular Volume 82 fL (80-100); Mean Platelet Volume 10.8 fL (9.1-12.4); NEUTROPHILS ABSOLUTE AUTO 3.94 K/mm3 (1.96-9.15); NEUTROPHILS PERCENT AUTO 66 % (41-73); Platelet Count 163 K/mm3 (150-400); RDW Coefficient Variation 11.9 % (11.7-14.2); RDW Standard Deviation 35.1 fL (35.1-46.3); Red Blood Cell Count 5.44 M/mm3 (3.80-5.20); White Blood Cell Count 6.01 K/mm3 (4.00-11.30)
[2021-06-28 01:45] LABS: Alanine Aminotransfer (ALT/SGP 27 U/L (12-78); Albumin, Blood 3.7 g/dL (3.4-5.0); Albumin/Globulin Ratio 0.9 (0.8-1.8); Alk Phos 59 U/L (50-136); Anion Gap 7 mmol/L (6-16); Aspartate Aminotrans (AST/SGOT 23 U/L (12-37); Bilirubin, Total 0.7 mg/dL (0.1-1.0); Blood Urea Nitrogen 18 mg/dL (8-24); Bun/Creatinine Ratio 26.4 (12.0-20.0); CO2, Blood 25 mmol/L (21-32); Calcium, Blood 8.8 mg/dL (8.5-10.1); Chloride, Blood 104 mmol/L (98-108); Creatinine, Blood 0.68 mg/dL (0.40-1.00); Globulin, Blood 4.3 g/dL (2.2-4.0); Glomerular Filtration Rate >60 (60-); Glucose, Blood 368 mg/dL (70-99); Potassium, Blood 3.9 mmol/L (3.5-5.5); Sodium, Blood 136 mmol/L (136-145)
[2021-06-28] MEDS ORDERED: MECL25 PO (05:16)
== END 2021-06-28 05:45 | disposition home or self-care (01) ==
LOC: ER 00:21
PROVIDERS: Student in an Organized Health Care Education/Training Program
DX: R42 Dizziness and giddiness (principal); E11.9 Type 2 diabetes mellitus without complications; I10 Essential (primary) hypertension; Z88.2 Allergy status to sulfonamides; Z88.1 Allergy status to other antibiotic agents; Z88.8 Allergy status to other drugs, medicaments and biological substances; Z79.899 Other long term (current) drug therapy; Z79.4 Long term (current) use of insulin
CPT/HCPCS: 80053; 83690; 85025; 93005; 93010; 96374; 96375; 99284-25; A9270; J2405; J2765

== ENCOUNTER 2022-10-15 12:34 | Inpatient (IN) | payer OTHER ==
[~2022-10-15] VITALS: Ht 160 cm; Wt 60.2 kg
[2022-10-15 13:21] LABS: Source, Urine Straight Cath
[2022-10-15 13:27] LABS: BASOPHILS ABSOLUTE AUTO 0.02 K/mm3 (0.00-0.23); BASOPHILS PERCENT AUTO 0 % (0-2); EOSINOPHILS PERCENT AUTO 0 % (0-6); Hematocrit 44.1 % (33.0-51.0); Hemoglobin 14.9 g/dL (11.5-16.0); IMMATURE GRAN ABSOLUTE AUTO 0.03 K/mm3 (0.00-0.10); IMMATURE GRAN PERCENT AUTO 0 % (0-1); LYMPHOCYTES ABSOLUTE AUTO 0.77 K/mm3 (0.84-5.20); LYMPHOCYTES PERCENT AUTO 9 % (21-46); MONOCYTES ABSOLUTE AUTO 0.35 K/mm3 (0.16-1.47); MONOCYTES PERCENT AUTO 4 % (4-13); Mean Corpuscular HGB 28.8 pg (26.0-34.0); Mean Corpuscular HGB Conc 33.8 g/dL (31.5-36.5); Mean Corpuscular Volume 85 fL (80-100); NEUTROPHILS PERCENT AUTO 86 % (41-73); Platelet Count 126 K/mm3 (150-400); RDW Standard Deviation 36.9 fL (35.1-46.3); Red Blood Cell Count 5.18 M/mm3 (3.80-5.20); White Blood Cell Count 8.17 K/mm3 (4.00-11.30)
[2022-10-15 13:30] LABS: Appearance, Urine Hazy (Clear); Bilirubin, Urine Neg (Neg); Blood, Urine 2+ (Neg); Glucose Qualitative, Urine 4+ (Neg); Ketones, Urine 2+ (Neg); Leukocyte Esterase, Urine Neg (Neg); Nitrite, Urine Neg (Neg); Protein, Urine 3+ (Neg); Specific Gravity, Urine 1.015 (1.003-1.022); Urobilinogen, Urine NORM (Normal)
[2022-10-15 13:37] LABS: Albumin, Blood 3.5 g/dL (3.4-5.0); Albumin/Globulin Ratio 0.9 (0.8-1.8); Bun/Creatinine Ratio 24.5 (12.0-20.0); Calcium, Blood 8.9 mg/dL (8.5-10.1); Creatinine, Blood 0.9 mg/dL (0.40-1.00); Globulin, Blood 3.7 g/dL (2.2-4.0); Potassium, Blood 4.5 mmol/L (3.5-5.5); Total Protein, Blood 7.2 g/dL (6.4-8.2)
[2022-10-15 13:38] LABS: Color, Urine Pale Yellow (P-Yellow)
[2022-10-15 13:40] LABS: Bacteria Mod /hpf; Mucus Light (0-Heavy); Red Blood Cells, Urine 0-2 /hpf (0-2); Renal Epithelial Rare /hpf (0-Rare); Squamous Epithelial Cells Not Seen /hpf (Few); Yeast/Fungi Urine Many /hpf
[2022-10-15 13:45] LABS: Base Excess Venous -1.2 mmol/L; Bicarbonate Venous 22.9 mmol/L (24.0-30.0); PO2 Venous 50.7 mmHg (38-42); pH Blood Venous 7.35 (7.34-7.37)
[2022-10-15 14:18] LABS: U Amphetamine Screen Not Detected; U Barbituate Screen Not Detected; U Benzodiazapine Screen Not Detected; U Buprenorphine Screen Not Detected; U Cannabinoids Screen Not Detected; U Cocaine Screen Not Detected; U Methadone Screen Not Detected; U Methamphetamine Screen Not Detected; U Opiates Screen Not Detected; U Oxycodone Screen Not Detected; U Phencyclidine Screen Not Detected; U Propoxyphene Screen Not Detected
[2022-10-15 14:51] LABS: Influenza A, PCR NEGATIVE (NEGATIVE); Influenza B, PCR NEGATIVE (NEGATIVE); Resp Syncytial Virus, PCR NEGATIVE (NEGATIVE); SARS-Cov-2 (COVID-19) PCR, MMC NEGATIVE (NEGATIVE)
--- NOTE | 2022-10-15 18:55 | NUR ---
ASSUMPTION OF CARE PT TX TO ICU ROOM 3 FROM ER VIA [employer]. SLIDER SHEET UTILIZED TO TX TO ICU BED. PT DROWSY UPON ARRIVAL. SHEETS SOILED, PT CLEANED AND PUREWICK APPLIED FOR URINARY INCONTINENCE. PT OPENING EYES TO VERBAL STIMULI. PUPILS EQUAL AND REACTIVE. SPEECH IS SLURRED. PT STATING NAME AND BIRTHDATE BUT UNABLE TO PROVIDE DETAILED MEDICAL HISTORY, ALSO DOES NOT REMEMBER ANY EVENTS AFTER DINNER YESTERDAY 10/14/22 @ 1830. R SIDED FACIAL DROOP PRESENT. R SIDED WEAKNESS TO UPPER AND LOWER EXTREMITIES. FULL RANGE OF MOTION TO LEFT SIDED EXTREMITIES. NSR ON THE SERVICE PERSON. VSS STABLE. CALL LIGHT IN REACH IN L HAND. WILL REPORT TO ONCOMING NURSE.
--- NOTE | 2022-10-15 20:17 | NUR ---
ASSUMED CARE OF PT AT 1900 PT SLEEPING IN ROOM AT THIS TIME. PURWICK IN PLACE. HR AND BP STABLE. SPO2 95 ON RA. RIGHT SIDED DEFECIT UPPER AND LOWER EXTREMETIES. PT NOT WANTING TO WAKE TO SPEAK AT THIS TIME. SLIGHT FACIAL DROOP NOTICABLE. NO IV'S RUNNING AT THIS TIME. SEE FULL ASSESSMENT FOR FURTHER DETAILS.
--- NOTE | 2022-10-15 22:00 | NUR ---
PT AWAKE AND ANSWERING QUESTIONS. A/O X4.
[2022-10-16 03:46] LABS: BASOPHILS ABSOLUTE AUTO 0.02 K/mm3 (0.00-0.23); BASOPHILS PERCENT AUTO 0 % (0-2); EOSINOPHILS ABSOLUTE AUTO 0.01 K/mm3 (0.00-0.68); EOSINOPHILS PERCENT AUTO 0 % (0-6); Hematocrit 40.9 % (33.0-51.0); Hemoglobin 13.8 g/dL (11.5-16.0); IMMATURE GRAN ABSOLUTE AUTO 0.02 K/mm3 (0.00-0.10); IMMATURE GRAN PERCENT AUTO 0 % (0-1); LYMPHOCYTES ABSOLUTE AUTO 1.42 K/mm3 (0.84-5.20); LYMPHOCYTES PERCENT AUTO 21 % (21-46); MONOCYTES ABSOLUTE AUTO 0.64 K/mm3 (0.16-1.47); MONOCYTES PERCENT AUTO 9 % (4-13); Mean Corpuscular HGB 28.7 pg (26.0-34.0); Mean Corpuscular HGB Conc 33.7 g/dL (31.5-36.5); Mean Corpuscular Volume 85 fL (80-100); Mean Platelet Volume 11.5 fL (9.1-12.4); NEUTROPHILS ABSOLUTE AUTO 4.83 K/mm3 (1.96-9.15); NEUTROPHILS PERCENT AUTO 70 % (41-73); Platelet Count 132 K/mm3 (150-400); Red Blood Cell Count 4.81 M/mm3 (3.80-5.20); White Blood Cell Count 6.94 K/mm3 (4.00-11.30)
[2022-10-16 04:11] LABS: Alanine Aminotransfer (ALT/SGP 26 U/L (12-78); Albumin/Globulin Ratio 0.9 (0.8-1.8); Alk Phos 50 U/L (50-136); Anion Gap 7 mmol/L (6-16); Aspartate Aminotrans (AST/SGOT 25 U/L (12-37); Bilirubin, Total 1.1 mg/dL (0.1-1.0); Blood Urea Nitrogen 18 mg/dL (8-24); Bun/Creatinine Ratio 24.6 (12.0-20.0); CHOL/HDL RATIO 2.9; CO2, Blood 26 mmol/L (21-32); Calcium, Blood 8.6 mg/dL (8.5-10.1); Chloride, Blood 108 mmol/L (98-108); Cholesterol 205 mg/dL (50-200); Creatinine, Blood 0.73 mg/dL (0.40-1.00); Globulin, Blood 3.4 g/dL (2.2-4.0); Glomerular Filtration Rate 94 (60-); Glucose, Blood 164 mg/dL (70-99); HDL Cholesterol 70 mg/dL (>39); LDL/HDL RATIO 1.5; Low Density Lipoprotein Chol 102 mg/dL (0-110); Potassium, Blood 3.6 mmol/L (3.5-5.5); Sodium, Blood 141 mmol/L (136-145); Thyroid Stimulating Hormone 0.514 uIU/mL (0.360-4.800); Total Protein, Blood 6.4 g/dL (6.4-8.2); Triglycerides 165 mg/dL (30-160); Very Low Density Lipoprot Chol 33 mg/dL (6-32)
--- NOTE | 2022-10-16 05:24 | NUR ---
END OF SHIFT SUMMARY PT SLEPT THROUGHOUT SHIFT, DIFFICULT TO AROUSE. A/O X4. PUREWICK IN PLACE WITH MINIMAL OUTPUT. ONE BED CHANGE DUE TO MISPLACED PUREWICK. NO BM THIS SHIFT. BP 140'S/80'S, HR 80'S-90'S. SPO2 >93% ON RA. PT MOVES IN BED ON HER OWN, USES ASSISTANCE FOR ROLLING SIDE TO SIDE. RIGHT SIDED FACIAL DROOP APPARENT. RIGHT EXTREMETIES SHOW NO MOVEMENT AT THIS TIME. LR RUNNING AT 150 MLS/HR. WILL CONTINUE TO MONITOR UNTIL REPORT GIVEN TO AM NURSE.
--- NOTE | 2022-10-16 10:24 | NUR ---
Pt. is resting but family (brother I believe) is present and welcomes my visit. Brother verbalized that Pt. had suffered a stroke, but is unsettled with regard to the prognosis. Brother verbalized that Pt. is a woman of diamond and verbalized gratitude for the spiritual care visit. Will remain available to Pt. and family.
--- NOTE | 2022-10-16 11:00 | NUR ---
ASSUMED CARE, REPORT FROM VISHAL WHITMORE
--- NOTE | 2022-10-16 11:32 | NUR ---
AM NOTE: PT LETHARGIC, AROUSES EASILY TO STAFF IN ROOM, COOPERATIVE W/CARE. PT STATES HER OWN NAME AND , KNOWS SHE IS AT [facility], AND REPORTS SHE REMEMBERS GETTING UP YESTERDAY AM AT 0500 TO USE THE RESTROOM THEN WOKE UP AT 0800 AND COULDN'T MOVE HER RIGHT SIDE, HER FAMILY HEARD HER CALLING OUT AND FOUND HER. R FACIAL DROOP AND R SIDE WEAKNESS CONTINUES, PT REPORTS SENSATION OF BEING TOUCHED TO R ARM AND LEG. FULL ROM TO L SIDE IN PLACE. PT MAINTAINING O2 SATS >92% ON RA. SR ON MONITOR. PUREWICK IN PLACE, DRAINING TO SUCTION, ATTENDS CHANGED NEEDED. REPORT GIVEN TO HAIM PRATT TO ASSUME CARE OF PT.
--- NOTE | 2022-10-16 11:54 | NUR ---
ATTEMPTED TO PLACE DOBHOFF PER DR. RODAS. PT DID NOT TOLERATE PLACEMENT, SCREAMING AND PULLING AT STAFF YELLING "STOP". CALL TO DR. MYRICK TO UPDATE. DR. MYRICK IN TO TALK WITH PT. PLANS TO PROCEED WITH PERIPHERAL NUTRITION TODAY, REEVAL WITH SPEECH THERAPY TOMORROW, IF SHE CONTINUES TO FAIL HER SWALLOW EVAL TOMORROW THEN WILL EVAL FOR PICC PLACEMENT FOR CONTINUED IV NUTRITION.
--- NOTE | 2022-10-16 18:17 | NUR ---
SHIFT SUMMARY PT. REMAINS VERY DROWSY T/O SHIFT. AWAKENS EASILY TO VERBAL STIMULI, ANSWERS QUESTIONS, AT TIMES DIFFICULT TO UNDERTAND. CONTINUES WITH RIGHT SIDED DEFICITS. REMAINS NPO AT THIS TIME. PT. REMAINS ON RA. PERIPHERAL NUTRITION INITIATED THIS PM. PT. HAS PURWICK IN PLACE. FAMILY AT BEDSIDE T/O DAY. NO ACUTE CHANGES. CALL TO DR. AMAYA AT END OF SHIFT FOR HTN MEDICATION, DUE TO PT BP INCREASING AT TIMES. PRN MEDICATION FOR SYSTOLIC BP >160 ORDERED.
[2022-10-17 03:47] LABS: BASOPHILS ABSOLUTE AUTO 0.02 K/mm3 (0.00-0.23); BASOPHILS PERCENT AUTO 0 % (0-2); EOSINOPHILS PERCENT AUTO 0 % (0-6); Hematocrit 39.5 % (33.0-51.0); Hemoglobin 13.6 g/dL (11.5-16.0); IMMATURE GRAN ABSOLUTE AUTO 0.03 K/mm3 (0.00-0.10); IMMATURE GRAN PERCENT AUTO 0 % (0-1); LYMPHOCYTES ABSOLUTE AUTO 1.37 K/mm3 (0.84-5.20); LYMPHOCYTES PERCENT AUTO 17 % (21-46); MONOCYTES ABSOLUTE AUTO 0.62 K/mm3 (0.16-1.47); MONOCYTES PERCENT AUTO 8 % (4-13); Mean Corpuscular HGB 28.9 pg (26.0-34.0); Mean Corpuscular HGB Conc 34.4 g/dL (31.5-36.5); Mean Corpuscular Volume 84 fL (80-100); Mean Platelet Volume 11.3 fL (9.1-12.4); NEUTROPHILS ABSOLUTE AUTO 6.09 K/mm3 (1.96-9.15); NEUTROPHILS PERCENT AUTO 75 % (41-73); Platelet Count 142 K/mm3 (150-400); RDW Coefficient Variation 11.8 % (11.7-14.2); RDW Standard Deviation 35.7 fL (35.1-46.3); Red Blood Cell Count 4.71 M/mm3 (3.80-5.20); White Blood Cell Count 8.13 K/mm3 (4.00-11.30)
[2022-10-17 04:04] LABS: Anion Gap 7 mmol/L (6-16); Blood Urea Nitrogen 16 mg/dL (8-24); Bun/Creatinine Ratio 22.5 (12.0-20.0); CO2, Blood 26 mmol/L (21-32); Chloride, Blood 106 mmol/L (98-108); Creatinine, Blood 0.71 mg/dL (0.40-1.00); Glomerular Filtration Rate 97 (60-); Glucose, Blood 265 mg/dL (70-99); Magnesium, Blood 1.8 mg/dL (1.6-2.4); Phosphorus, Blood 3.2 mg/dL (2.5-4.9); Potassium, Blood 3.7 mmol/L (3.5-5.5); Sodium, Blood 139 mmol/L (136-145); Triglycerides 323 mg/dL (30-160)
--- NOTE | 2022-10-17 06:31 | NUR ---
SHIFT SUMMARY: PATIENT SLEPT BETWEEN CARE. TURNED Q2 HOURS. CBG'S TRENDING UPWARDS DESPITE Q6 COVERAGE.
--- NOTE | 2022-10-17 07:27 | NUR ---
ASSUMED CARE: PT RESTING QUIETLY IN BED AT THIS TIME. NSR IN THE 80S. NPO FOR SPEECH EVALUATION. NO ACUTE NEEDS OR CONCERNS AT THIS TIME.
--- NOTE | 2022-10-17 08:05 | NUR ---
OCCUPATIONAL THERAPIST AT BEDSIDE.
--- NOTE | 2022-10-17 11:10 | NUR ---
PT TAKEN VIA GURNEY BY IMAGING STAFF FOR BARIUM SWALLOW. SONS AT BEDSIDE AND ASKED ABOUT SPEAKING WITH CAREER EDUCATION TEACHER REGARDING DISCHARGE PLANNING. CAREER EDUCATION TEACHER AWARE AND STATES SHE WILL COME SPEAK TO THEM IN A FEW MINUTES.
--- NOTE | 2022-10-17 11:58 | NUR ---
Received call from social professionals reporting family would like information regarding advanced directive. Brief supportive visit. Pt resting in bed and is non verbal. Pt does appear to understand discussion as she does respond to questions by noding her head yes and no. Family at bedside. Engaged in therapeutic discussion regarding AD. Educated on each section to be completed. Educated on each scenario and meaning of life support and tube feedings. Family expresses appreciation and will have conversation with Pt. Palliative Care will remain available.
--- NOTE | 2022-10-17 12:43 | NUR ---
SPEECH THERAPY STATED PT CAN NOW BE ON A PUREE DIET WITH THICKENED LIQUIDS. DR VALLE ORDERED PO MEDS. DISCUSSED ALTERNATIVES TO PHARMACY SO THAT MED CAN BE CRUSHED. CALL TO DR VALLE WHO STATES HE WILL CHANGE ORDER. INTERNATIONAL ACCOUNTANT AWARE OF NEW DIET ORDERS.
--- NOTE | 2022-10-17 15:50 | NUR ---
REPORT CALLED TO HAIM KRAUSE. PT TRANSFERRED VIA BED TO PCU 18. FAMILY ACCOMPANYING PT UPON TRANSFER.
--- NOTE | 2022-10-17 17:30 | NUR ---
SHIFT SUMMARY PT TRANSFERRED FROM ICU 3 TO PCU 18 AT APPROX. 1550. DUE TO RIGHT SIDED DEFICITS, SHE WAS A SLIDER TRANSFER. RIGHT SIDED EXTREMETIES ARE FLACID AND RIGHT SIDED FACIAL DROOP NOTED. SHE IS ALERT AND ORIENTED X4 BUT HAS APPEARED SOMNOLENT. SPO2 95% VIA ROOM AIR, HR SINUS RYTHM 90'S PER TELE MONITORING, BP WAS ELEVATED W/ SBP 167, SEE EMAR. TPN AND LR INFUSING PER EMAR ORDERS. SHE HAS A PUREE DIET ORDER W/ PUDDING THICK LIQUIDS BUT HAS DENIED PO INTAKE AT THIS TIME. DINNER TRAYS ARRIVED AND PCU18 TRAY WAS MISSING, TRAY NOW ORDERED BY THIS RN AND WILL ENCOURAGE PO INTAKE APPROPRIATE. HER SON HAS BEEN AT BEDSIDE ALONG WITH ANOTHER FAMILY MEMBER. SHE DENIED FEELINGS OF PAIN. NO COUGH NOTED. PT NOW APPEARS TO BE SLEEPING, CALL LIGHT IS IN REACH OF UNAFFECTED HAND (LEFT HAND). WILL CONTINUE TO MONITOR UNTIL REPORT GIVEN.
--- NOTE | 2022-10-17 17:54 | NUR ---
CARE NOTE TPN DISCONTINUED PER EMAR ORDERS 1750, LR TITRATED TO 75ML/HR PER EMAR ORDERS.
--- NOTE | 2022-10-18 04:03 | NUR ---
SHIFT SUMMARY: PT REMAINS ALERT AND ORIENTED X4, ABLE TO FOLLOW COMMANDS AND MAKE NEEDS KNOWN. BP AND HR STABLE. AFEBRILE. SATING >98% ON RA, RESPIRATIONS EVEN AND UNLABORED. PULSES STRONG AND EQUAL THROUGHOUT. PT ABLE TO MOVE UPPER AND LOWER LEFT EXTREMENTIES, RIGHT SIDE REMAIN FLACCID. PT INC OF BOTH URINE AND BOWEL. MUTIPLE INC VOIDS THROUGHT THE NIGHT, NO BM. ATTENDS IN PLACE. REPOS Q2. SON AT BEDSIDE AT BEGINNING OF SHIFT AND UPDATED ON PT CARE. BED IN LOW, CALL LIGHT IN REACH, WILL REPORT TO ONCOMING RN.
[2022-10-18 04:07] LABS: BASOPHILS ABSOLUTE AUTO 0.02 K/mm3 (0.00-0.23); BASOPHILS PERCENT AUTO 0 % (0-2); EOSINOPHILS ABSOLUTE AUTO 0.01 K/mm3 (0.00-0.68); EOSINOPHILS PERCENT AUTO 0 % (0-6); Hematocrit 38.4 % (33.0-51.0); Hemoglobin 13.5 g/dL (11.5-16.0); IMMATURE GRAN ABSOLUTE AUTO 0.02 K/mm3 (0.00-0.10); IMMATURE GRAN PERCENT AUTO 0 % (0-1); LYMPHOCYTES ABSOLUTE AUTO 1.33 K/mm3 (0.84-5.20); LYMPHOCYTES PERCENT AUTO 16 % (21-46); MONOCYTES ABSOLUTE AUTO 0.74 K/mm3 (0.16-1.47); MONOCYTES PERCENT AUTO 9 % (4-13); Mean Corpuscular HGB 29.2 pg (26.0-34.0); Mean Corpuscular HGB Conc 35.2 g/dL (31.5-36.5); Mean Corpuscular Volume 83 fL (80-100); Mean Platelet Volume 11.6 fL (9.1-12.4); NEUTROPHILS ABSOLUTE AUTO 6.11 K/mm3 (1.96-9.15); NEUTROPHILS PERCENT AUTO 74 % (41-73); Platelet Count 133 K/mm3 (150-400); Red Blood Cell Count 4.63 M/mm3 (3.80-5.20); White Blood Cell Count 8.23 K/mm3 (4.00-11.30)
[2022-10-18 04:34] LABS: Albumin, Blood 2.6 g/dL (3.4-5.0); Albumin/Globulin Ratio 0.7 (0.8-1.8); Bilirubin, Total 0.9 mg/dL (0.1-1.0); Bun/Creatinine Ratio 22.7 (12.0-20.0); Calcium, Blood 8.5 mg/dL (8.5-10.1); Creatinine, Blood 0.75 mg/dL (0.40-1.00); Globulin, Blood 3.5 g/dL (2.2-4.0); Magnesium, Blood 1.8 mg/dL (1.6-2.4); Phosphorus, Blood 3.6 mg/dL (2.5-4.9); Potassium, Blood 3.6 mmol/L (3.5-5.5); Total Protein, Blood 6.1 g/dL (6.4-8.2)
--- NOTE | 2022-10-18 08:45 | NUR ---
INITIAL ASSESSMENT: Patient is alert and oriented, flat affect. She has a right facial droop along with RUE and RLE flaccid-senstaion intact. MIA. She denies pain at this time. HRR, SR in the 70s. LS CTA, Biox WNL on RA. PPP. She is cont, she was able to use the bed gilmore and have a medium BM this AM. PO meds given crushed in apple sauce. She didn't eat much of breakfast. VSS. Call light in reach. OT at bedside to work with patient.
--- NOTE | 2022-10-18 12:30 | NUR ---
Update: Patient worked with OT this AM, once patient made it to sittin on the edge of the bed she became nauseated, this resolved once she was back in bed and after she ate a little bit of lunch.VSS. Son at the bedside. Patient denies other needs at this time. Call light in reach.
--- NOTE | 2022-10-18 15:30 | NUR ---
Update: VSS. Patient was working with PT earlier and became nauseous again, promethazine given. Patient assisted to lie back down. She denies other needs at this time. Call light in reach.
--- NOTE | 2022-10-18 19:30 | NUR ---
Summary: Patient has been alert and oriented T/O the shift. She has had right sided paralysis t/o the shift, with right facial droop as well. HRR. LS CTA, Biox has been high 90s on RA. BT+, pt was able to have a soft formed brown BM on the bed gilmore today. She has an attends in place but has been calling to use the bedpan. VSS t/o the shift. Pureed diet, meds crushed in apple sauce-pt tolerated well with a moderate amout of PO intake. Patient was able to get to the edge of the bed with PT and OT this shift, both times however the patient became nauseous. Plan for DC to SNF. No acute changes this shift. Report given to Conchis gonsalves RN.
[2022-10-19 04:04] LABS: BASOPHILS ABSOLUTE AUTO 0.02 K/mm3 (0.00-0.23); BASOPHILS PERCENT AUTO 0 % (0-2); EOSINOPHILS ABSOLUTE AUTO 0.01 K/mm3 (0.00-0.68); EOSINOPHILS PERCENT AUTO 0 % (0-6); Hematocrit 39.6 % (33.0-51.0); Hemoglobin 13.7 g/dL (11.5-16.0); IMMATURE GRAN ABSOLUTE AUTO 0.02 K/mm3 (0.00-0.10); IMMATURE GRAN PERCENT AUTO 0 % (0-1); LYMPHOCYTES ABSOLUTE AUTO 1.03 K/mm3 (0.84-5.20); LYMPHOCYTES PERCENT AUTO 13 % (21-46); MONOCYTES PERCENT AUTO 9 % (4-13); Mean Corpuscular HGB 29.2 pg (26.0-34.0); Mean Corpuscular HGB Conc 34.6 g/dL (31.5-36.5); Mean Corpuscular Volume 84 fL (80-100); Mean Platelet Volume 11.8 fL (9.1-12.4); NEUTROPHILS ABSOLUTE AUTO 6.31 K/mm3 (1.96-9.15); NEUTROPHILS PERCENT AUTO 78 % (41-73); Platelet Count 124 K/mm3 (150-400); RDW Standard Deviation 36.1 fL (35.1-46.3); Red Blood Cell Count 4.69 M/mm3 (3.80-5.20); White Blood Cell Count 8.09 K/mm3 (4.00-11.30)
[2022-10-19 04:39] LABS: Bun/Creatinine Ratio 23.8 (12.0-20.0); Calcium, Blood 8.4 mg/dL (8.5-10.1); Creatinine, Blood 0.8 mg/dL (0.40-1.00); Magnesium, Blood 1.9 mg/dL (1.6-2.4); Phosphorus, Blood 3.5 mg/dL (2.5-4.9)
--- NOTE | 2022-10-19 06:49 | NUR ---
NO ACUTE EVENTS OVERNIGHT LAST NIGHT. MS. LUND CONTINUES TO HAVE FLACCIDITY TO THE RIGHT EXTREMITIES AND A RIGHT FACIAL DROOP. SENSATION IS INTACT TO ALL EXTREMITIES. SHE HAS BEEN CONTINENT OF BOWEL AND BLADDER THROUGHOUT THE NIGHT, USING HER CALL LIGHT APPROPRIATELY TO REQUEST THE BEDPAN. SHE IS ABLE TO TURN HERSELF TO HER RIGHT SIDE BY PULLING WITH HER LEFT HAND AND PLACING THE LEFT KNEE OVER THE RIGHT. PT OFFERED PUDDING THICKENED LIQUIDS BUT DECLINES. SHE DID HAVE 4 OZ OF YOGURT. LACTATED RINGERS CONTINUE TO INFUSE.
[2022-10-19] MEDS ORDERED: ASPI81CH PO (12:59)
[2022-10-19] MEDS ORDERED: ATOR80 PO (13:00)
[2022-10-19] MEDS ORDERED: METO25 PO (13:02)
[2022-10-19] MEDS ORDERED: OMEGA-3 FISH O1 EAC6 PO (13:07)
[2022-10-19 15:35] LABS: SARS-Cov-2 (COVID-19) PCR, MMC NEGATIVE (NEGATIVE)
--- NOTE | 2022-10-19 15:39 | NUR ---
Pt's sons were given a copy of [place] Advance Directive booklet, and Palliative care business card was left with them 2 days ago when pt was in ICU. At this time, will continue to monitor, assess for advance care planning needs as they arise.
--- NOTE | 2022-10-19 17:04 | NUR ---
DISCHARGE TO SNF PT MEDICAL NO TELE STATUS. A&O X4. VSS. SPO2 > 92% ON RA. MONITOR SHOWING NSR, HR 60s-80s. PT W/ R ARM & R LEG FLACCIDITY. PT CONTINENT W/ EPISODES OF INCONTINENCE, WEARING AN ATTENDS & USING BEDPAN. PT TOLERATING PUREE DIET. PIVs REMOVED. REPORT CALLED TO ACCEPTING NURSE @ [facility]. PT TRANSPORTED TO [facility] BY EMS IN [facility] @ 1700.
== END 2022-10-19 16:58 | DRG 64 ==
LOC: ER 12:34 → PCU 16:13 → ICUE 17:48 → PCU 10-17 15:50
PROVIDERS: Family Medicine; Student in an Organized Health Care Education/Training Program; ADMIT Hospitalist
DX: I63.9 Cerebral infarction, unspecified (principal); I50.21 Acute systolic (congestive) heart failure; G81.91 Hemiplegia, unspecified affecting right dominant side; R47.1 Dysarthria and anarthria; R29.719 NIHSS score 19; Z28.21 Immunization not carried out because of patient refusal; Z20.822 Contact with and (suspected) exposure to COVID-19; R13.10 Dysphagia, unspecified; D69.6 Thrombocytopenia, unspecified; R47.81 Slurred speech; I11.0 Hypertensive heart disease with heart failure; E11.9 Type 2 diabetes mellitus without complications; Z87.442 Personal history of urinary calculi; Z90.89 Acquired absence of other organs; Z90.49 Acquired absence of other specified parts of digestive tract; Z98.890 Other specified postprocedural states; Z85.038 Personal history of other malignant neoplasm of large intestine; Z88.1 Allergy status to other antibiotic agents; Z88.2 Allergy status to sulfonamides; Z88.8 Allergy status to other drugs, medicaments and biological substances; Z79.4 Long term (current) use of insulin; Z79.899 Other long term (current) drug therapy
CPT/HCPCS: 0241U; 36415; 70450; 70496; 70498; 70551; 74230; 80048; 80053; 80061; 81001; 82010; 82803; 82947; 83036; 83735; 84100; 84443; 84478; 85025; 87086; 92526; 92610; 92611; 93005; 93010; 97110; 97112; 97162; 97166; 97530; 99285-25; A9270; C8929; J0360; J1650; J1815; J2550; J7120; P9612; Q9957; Q9967; U0004

== ENCOUNTER → 2022-11-02 | Outpatient (CLI) | payer OTHER ==
[~2022-11-02] MED LIST changes: +ASPI81CH PO; +ATOR80 PO; +METO25 PO; +OMEGA-3 FISH O1 EAC6 PO
[2022-11-02 08:56] LABS: Appearance, Urine Clear (Clear); Bilirubin, Urine Neg (Neg); Blood, Urine 3+ (Neg); Color, Urine Yellow (P-Yellow); Glucose Qualitative, Urine 4+ (Neg); Ketones, Urine Neg (Neg); Leukocyte Esterase, Urine 1+ (Neg); Nitrite, Urine Neg (Neg); Protein, Urine 3+ (Neg); Specific Gravity, Urine 1.015 (1.003-1.022); Urobilinogen, Urine NORM (Normal)
[2022-11-02 09:08] LABS: Squamous Epithelial Cells Rare /hpf (Few)
[2022-11-02 09:09] LABS: Bacteria Few /hpf; Transitional Epithelial Cells Rare /hpf (0-Rare); Yeast/Fungi Urine Mod /hpf
== END | disposition home or self-care (01) ==
LOC: LAB UVN 01:00 → EDSTATUS 10:16
PROVIDERS: Internal Medicine
DX: N39.0 Urinary tract infection, site not specified (principal)
CPT/HCPCS: 81001; 87086

== ENCOUNTER 2023-03-01 11:01 | Emergency (ER) | payer OTHER ==
[~2023-03-01] VITALS: Ht 160 cm; Wt 61.2 kg
[2023-03-01 12:56] LABS: Albumin, Blood 3.7 g/dL (3.4-5.0); Albumin/Globulin Ratio 0.8 (0.8-1.8); Bilirubin, Total 0.6 mg/dL (0.1-1.0); Bun/Creatinine Ratio 33.4 (12.0-20.0); Calcium, Blood 9.6 mg/dL (8.5-10.1); Creatinine, Blood 0.63 mg/dL (0.40-1.00); Globulin, Blood 4.5 g/dL (2.2-4.0); Potassium, Blood 4.1 mmol/L (3.5-5.5); Total Protein, Blood 8.2 g/dL (6.4-8.2)
[2023-03-01 13:29] LABS: Source, Urine Straight Cath
[2023-03-01 13:33] LABS: BASOPHILS ABSOLUTE AUTO 0.04 K/mm3 (0.00-0.23); BASOPHILS PERCENT AUTO 1 % (0-2); EOSINOPHILS ABSOLUTE AUTO 0.01 K/mm3 (0.00-0.68); EOSINOPHILS PERCENT AUTO 0 % (0-6); Hematocrit 42.2 % (33.0-51.0); Hemoglobin 15.2 g/dL (11.5-16.0); IMMATURE GRAN ABSOLUTE AUTO 0.05 K/mm3 (0.00-0.10); IMMATURE GRAN PERCENT AUTO 1 % (0-1); LYMPHOCYTES ABSOLUTE AUTO 0.78 K/mm3 (0.84-5.20); LYMPHOCYTES PERCENT AUTO 13 % (21-46); MONOCYTES ABSOLUTE AUTO 0.54 K/mm3 (0.16-1.47); MONOCYTES PERCENT AUTO 9 % (4-13); Mean Corpuscular HGB 29.1 pg (26.0-34.0); Mean Corpuscular Volume 81 fL (80-100); NEUTROPHILS ABSOLUTE AUTO 4.78 K/mm3 (1.96-9.15); NEUTROPHILS PERCENT AUTO 77 % (41-73); NRBC ABSOLUTE 0.03 K/mm3 (0.00-0.02); NRBC Auto 0.5 /100 WBC (0.0-0.2); RDW Coefficient Variation 11.9 % (11.7-14.2); RDW Standard Deviation 34.7 fL (35.1-46.3); Red Blood Cell Count 5.22 M/mm3 (3.80-5.20)
[2023-03-01 13:37] LABS: Appearance, Urine Hazy (Clear); Bilirubin, Urine Neg (Neg); Blood, Urine 2+ (Neg); Color, Urine Yellow (P-Yellow); Glucose Qualitative, Urine 3+ (Neg); Ketones, Urine Neg (Neg); Leukocyte Esterase, Urine Neg (Neg); Nitrite, Urine Neg (Neg); Protein, Urine 3+ (Neg); Urobilinogen, Urine NORM (Normal)
[2023-03-01 14:05] LABS: Bacteria Rare /hpf; Red Blood Cells, Urine 0-2 /hpf (0-2); Squamous Epithelial Cells Not Seen /hpf (Few); Yeast/Fungi Urine Many /hpf
[2023-03-01 16:15] VITALS: BP 170/84
== END 2023-03-01 16:15 | disposition home or self-care (01) ==
LOC: ER 11:01
PROVIDERS: Student in an Organized Health Care Education/Training Program
DX: R41.82 Altered mental status, unspecified (principal); E11.65 Type 2 diabetes mellitus with hyperglycemia; I11.0 Hypertensive heart disease with heart failure; I50.20 Unspecified systolic (congestive) heart failure; Z88.2 Allergy status to sulfonamides; Z88.1 Allergy status to other antibiotic agents; Z88.8 Allergy status to other drugs, medicaments and biological substances; Z79.899 Other long term (current) drug therapy; Z79.4 Long term (current) use of insulin; Z79.82 Long term (current) use of aspirin
CPT/HCPCS: 36415; 71045; 80053; 81001; 85025; 87077; 87086; 87186; 93005; 93010; 96374; 99285-25; A9270; J1885; J2405

== ENCOUNTER 2025-01-12 11:29 | Day surgery (SDC) | payer OTHER ==
[~2025-01-12] VITALS: Ht 160 cm; Wt 57.7 kg
[~2025-01-12 11:29] MED LIST changes: +Lactated Ringer's 1,000 ML IV ONE; +propofoL 50 ML IV ONE
[2025-01-12] MEDS ORDERED: OMEP20ER (11:56)
[2025-01-12] MEDS ORDERED: AMLODIPINE BES2.5 MG (11:56)
[2025-01-12] MEDS ORDERED: LIPITOR80 MG (11:56)
[2025-01-12] MEDS ORDERED: SPIRONOLACTONE25 MG (11:57)
[2025-01-12] MEDS ORDERED: Lactated Ringer's 1,000 ML IV ONE (13:19)
--- NOTE | 2025-01-12 14:37 | NUR ---
01/12/25 3287 Sylvia Taylor UNABLE TO ASSESS PT TOLERATING PO. PT DECLINED ANYTHING TO DRINK.
[2025-01-12 14:39] VITALS: BP 134/75
== END 2025-01-12 14:50 | disposition home or self-care (01) ==
LOC: ORSCSDS 11:29
PROVIDERS: Surgery
PROC: 0DJD8ZZ Inspection of Lower Intestinal Tract, Via Natural or Artificial Opening Endoscopic (ICD-10-PCS; principal; 2025-01-12 13:30)
PROC: 0DB68ZX Excision of Stomach, Via Natural or Artificial Opening Endoscopic, Diagnostic (ICD-10-PCS; principal; 2025-01-12 13:30)
PROC: 0DB48ZX Excision of Esophagogastric Junction, Via Natural or Artificial Opening Endoscopic, Diagnostic (ICD-10-PCS; principal; 2025-01-12 13:30)
DX: R10.13 Epigastric pain (principal); K22.70 Barrett's esophagus without dysplasia; K29.70 Gastritis, unspecified, without bleeding; Z85.038 Personal history of other malignant neoplasm of large intestine; Z12.11 Encounter for screening for malignant neoplasm of colon; E11.9 Type 2 diabetes mellitus without complications; I10 Essential (primary) hypertension; Z86.73 Personal history of transient ischemic attack (TIA), and cerebral infarction without residual deficits; Z79.82 Long term (current) use of aspirin; Z79.4 Long term (current) use of insulin; Z79.899 Other long term (current) drug therapy
CPT/HCPCS: 82947; 88305; 88342; J2704; J7120

== ENCOUNTER 2025-10-12 11:35 | Day surgery (SDC) | payer OTHER ==
[~2025-10-12] VITALS: Ht 160 cm; Wt 57.0 kg
[~2025-10-12 11:35] MED LIST changes: +AMLODIPINE BES2.5 MG; +Balanced Salt Epinephrine Irrigation Solution 500 mL IR SCH; +LIPITOR80 MG; -Lactated Ringer's 1,000 ML IV ONE; +Moxifloxacin HCL 0.5 MG/0.1 ML 0.4MLSYR RIGHTEYE SCH; +OMEP20ER; +Ondansetron 4 MG SoluTab MM PRN; +PHENYLEPHRINE\\TROPICAMIDE\\TETRACAINE OPHTHALMIC DILATING SOLN RIGHTEYE PRN; +Povidone-Iodine 450 DROP/30 ML Solution ONE; +SPIRONOLACTONE25 MG; +Tetracaine HCl/Pf 0.5% Opth Soln 4 ml ONE; -propofoL 50 ML IV ONE
[2025-10-12] MEDS ORDERED: ENTRESTO 24 MG1 EACH PO (12:24)
--- NOTE | 2025-10-12 12:39 | NUR ---
10/12/25 1239 SHORTY ACUÑA FOREARM IODINE SKIN TEST BEGAN 1237
--- NOTE | 2025-10-12 13:12 | NUR ---
10/12/25 1312 Saumya Vu 1310 BP:161/76 HR:80 O2:98% RESP:16
[2025-10-12 13:28] VITALS: BP 153/81
== END 2025-10-12 13:39 | disposition home or self-care (01) ==
LOC: ORSCSDS 11:35
PROVIDERS: Student in an Organized Health Care Education/Training Program
PROC: 08RJ3JZ Replacement of Right Lens with Synthetic Substitute, Percutaneous Approach (ICD-10-PCS; principal; 2025-10-12 13:00)
DX: E11.36 Type 2 diabetes mellitus with diabetic cataract (principal); E11.3593 Type 2 diabetes mellitus with proliferative diabetic retinopathy without macular edema, bilateral; H25.813 Combined forms of age-related cataract, bilateral; I10 Essential (primary) hypertension; I50.9 Heart failure, unspecified; Z86.73 Personal history of transient ischemic attack (TIA), and cerebral infarction without residual deficits; Z79.82 Long term (current) use of aspirin; Z79.4 Long term (current) use of insulin; Z79.899 Other long term (current) drug therapy
CPT/HCPCS: A9270; V2632

== ENCOUNTER 2025-10-19 10:37 | Day surgery (SDC) | payer OTHER ==
[~2025-10-19] VITALS: Ht 160 cm; Wt 57.5 kg
[~2025-10-19 10:37] MED LIST changes: +ENTRESTO 24 MG1 EACH PO; +Moxifloxacin HCL 0.5 MG/0.1 ML 0.4MLSYR LEFTEYE SCH; -Moxifloxacin HCL 0.5 MG/0.1 ML 0.4MLSYR RIGHTEYE SCH; +PHENYLEPHRINE\\TROPICAMIDE\\TETRACAINE OPHTHALMIC DILATING SOLN LEFTEYE PRN; -PHENYLEPHRINE\\TROPICAMIDE\\TETRACAINE OPHTHALMIC DILATING SOLN RIGHTEYE PRN; +Povidone-Iodine 450 DROP/30 ML Solution LEFTEYE SCH
[2025-10-19] MEDS ORDERED: Tetracaine HCl 0.5% Opth Soln 15 ml LEFTEYE ONE (11:54)
--- NOTE | 2025-10-19 12:01 | NUR ---
10/19/25 1201 Philip Clemons N 161/88 99 10L BLOW BY O2 69 18
[2025-10-19 12:20] VITALS: BP 152/70
[2025-10-19] MEDS ORDERED: Tetracaine HCl 0.5% Opth Soln 15 ml ONE (12:32)
== END 2025-10-19 12:26 | disposition home or self-care (01) ==
LOC: ORSCSDS 10:37
PROVIDERS: Student in an Organized Health Care Education/Training Program
PROC: 08RK3JZ Replacement of Left Lens with Synthetic Substitute, Percutaneous Approach (ICD-10-PCS; principal; 2025-10-19 12:00)
DX: E11.36 Type 2 diabetes mellitus with diabetic cataract (principal); H25.812 Combined forms of age-related cataract, left eye; Z96.1 Presence of intraocular lens; I10 Essential (primary) hypertension; Z86.73 Personal history of transient ischemic attack (TIA), and cerebral infarction without residual deficits; I50.9 Heart failure, unspecified; I42.0 Dilated cardiomyopathy; Z79.82 Long term (current) use of aspirin; Z79.4 Long term (current) use of insulin; Z79.899 Other long term (current) drug therapy
CPT/HCPCS: A9270; V2632